=== PATIENT | female | born 1985 | race Caucasian/White ===

== ENCOUNTER 2018-12-23 02:22 | Outpatient (CLI) | payer MEDICAID, SELFPAY ==
--- NOTE | 2018-12-23 08:23 | DI.RAD_ITS ---
SYMPTOM/DIAGNOSIS: ACUTE ON CHRONIC PAIN, WORSE ON RT, SACROILIAC PAIN, SACROCOCCYGEAL DISORDER, M53.3, LOW BACK PAIN SACROILIAC JOINTS: The sacroiliac joints have a normal appearance. There is no abnormal sclerosis or bony erosions or abnormal widening. The pubic symphysis and hip joints are normal in appearance. The L 4-5 and L 5-S 1 discs are well maintained in height. No spondylolysis or spondylolisthesis is seen. IMPRESSION: Normal SI joints.
== END 2018-12-23 02:42 ==
PROVIDERS: PCP Family Medicine; Visit Provider Family Medicine
DX: M53.3 Sacrococcygeal disorders, not elsewhere classified (principal); M54.5 Low back pain; G89.29 Other chronic pain
CPT/HCPCS: 72202

== ENCOUNTER 2019-06-20 01:40 | Outpatient (CLI) | payer MEDICAID, SELFPAY ==
--- NOTE | 2019-06-20 11:02 | DI.MRI_ITS ---
EXAM: MR LUMBAR SPINE WO CLINICAL HISTORY: Sciatica > 3 months, no relief from PT M54.30. TECHNIQUE: Multiplanar multisequence MRI was performed. COMPARISON: XR sacroiliac joints from 12/23/2018 FINDINGS: There is high signal on T2 and STIR weighted images at the inferior endplate of L1 which also shows m ild compression. The mean intervertebral body show normal height and signal. The T10-11 levels unre markable. At T11, there is a small disc protrusion which effaces the anterior CSF space. There is n o neural foraminal narrowing. The T12-L1 disc has a normal appearance. At L1-2, there is mild loss of disc height and disc desiccation as well as slight disc bulging. There is no central canal steno sis or neural foraminal narrowing. The L2-3, L3-4, L4-5 and L5-S1 discs appear intact. There is no neural foraminal narrowing at any level. The conus medullaris appears normal. The aorta is normal i n diameter. IMPRESSION: 1. Mild compression fracture of the inferior endplate L-1. 2. Small disc protrusion at T 11-12
== END 2019-06-20 02:00 ==
PROVIDERS: PCP Family Medicine; Visit Provider Family Medicine
DX: M54.30 Sciatica, unspecified side (principal); M48.56XD Collapsed vertebra, not elsewhere classified, lumbar region, subsequent encounter for fracture with routine healing; M51.24 Other intervertebral disc displacement, thoracic region
CPT/HCPCS: 72148

== ENCOUNTER 2019-08-29 14:10 | Outpatient (CLI) | payer MEDICAID, SELFPAY ==
[2019-08-28 17:29] VITALS: BP 105/68; PULSE 64; RESP 16; TEMP 36.4; O2SAT 100
[2019-08-29] MEDS: Omnipaque 240 MG/ML 50 ML BTL IJ (15:05)
[2019-08-29] MEDS: methylPREDNISolone ACETATE 40 MG/ML VIAL IM (15:07)
[2019-08-29 15:08] VITALS: BP 128/63; PULSE 62; RESP 16; O2SAT 99
[2019-08-29] MEDS: Bupivacaine 0.5% Pres-Free 10 ML VIAL IJ (15:08)
--- NOTE | 2019-08-29 15:09 | DI.RAD_ITS ---
EXAM: XR PAIN CLINIC SACRIOILIAC 2V CLINICAL HISTORY: Dx: Sacroiliac Joint Dysfunction TECHNIQUE: C-arm fluoroscopy was utilized by Dr. Chadwick during SI joint injection. COMPARISON: No exams were available for comparison FINDINGS: Hard copy shows needle placement and injection in left SI joint. Fluoro time 19.2 seconds. IMPRESSION:
--- NOTE | 2019-08-29 15:09 | PDOC.PAIN_ITS ---
Pain Clinic Procedure Note Procedure Note Procedure Note: INTRA-ARTICULAR SI JOINT INJECTION YUNIEL CAMILO has been referred to the [facility] for intra- articular SI joint injection. Diagnosis: disorder of sacrum Patient was interviewed and the medical record reviewed. There were no medical, pharmacologic, radiographic or other structural contraindications to attempting fluoroscopically guided intra-articular SI joint injection. Risks and expected side effects as well as potential benefit of the procedure were reviewed and voiced concerns addressed. The printed consent form was signed and witnessed. Standard time-out procedure was performed. Patient was placed in the prone position on the fluoroscopy table and automated blood pressure cuff and pulse oximeter applied. The skin entry point for approaching left SI joints was identified under the most advantageous fluoroscopic view and marked. Following thorough Chlorhexadine preparation of the skin and draping and 1% lidocaine infiltration of the skin entry point and subcutaneous tissues, a 22 gauge 3.5'' spinal needle was placed under fluoroscopic guidance into left SI joints was identified under the most advantageous fluoroscopic view and marked. Intra-articular placement was confirmed by a clear arthrogram resulting from the injection of 0.25ml Omnipaque 240, 1.5ml 0.5% Bupivocaine, and 40mg Depomedrol (1cc) were injected intra- articularily with an initial reproduction of a significant component of the usual pain. Vital signs were stable throughout the procedure and were as recorded in the docflowsheet by the nursing staff. Follow up plans and appointments were discussed with the patient. Post procedure instruction was given as documented in nursing documentation and having met discharge criteria, and was discharged from the [facility]. COMMENTS: patient tolerated procedure well without issue. She reports similar symptoms involving the right sacroiliac joint mediated pain. Fernando Chadwikc MD Pain Management CC: Donte Barboza DO
== END 2019-08-29 14:30 ==
PROVIDERS: PCP Family Medicine; Visit Provider Internal Medicine
DX: M53.3 Sacrococcygeal disorders, not elsewhere classified (principal)
CPT/HCPCS: 27096; 72200; J1030; Q9967

== ENCOUNTER 2019-11-14 11:44 | Outpatient (CLI) | payer MEDICAID, SELFPAY ==
--- NOTE | 2019-11-14 06:00 | DI.RAD_ITS ---
EXAM: XR PAIN CLINIC SACRIOILIAC 2V CLINICAL HISTORY: Dx: Sacroiliac Joint Dysfunction TECHNIQUE: 2D and realtime digital imaging was performed. CONTRAST MATERIAL: Refer to procedure report. COMPARISON: No exams were available for comparison FINDINGS: Fluoroscopy was provided for Dr. Chadwick during the performance of a sacroiliac joint injection. Please refer to the procedure report for complete details. Fluoro time: 24.3 seconds IMPRESSION:
[2019-11-14 11:52] VITALS: BP 113/77; PULSE 95; RESP 20; TEMP 36.8; O2SAT 97
--- NOTE | 2019-11-14 12:09 | PDOC.PAIN_ITS ---
Pain Clinic Procedure Note Procedure Note Procedure Note: INTRA-ARTICULAR SI JOINT INJECTION YUNIEL CAMILO has been referred to the [facility] for intra- articular SI joint injection. pre-operative diagnosis: disorder of sacrum post-operative diagnosis: same as above Comment: patient received ~3 to 4 weeks of pain relief from prior left SI joint injection, it was able to bring baseline pain level down to 2 to 3 out of 10. Patient was interviewed and the medical record reviewed. There were no medical, pharmacologic, radiographic or other structural contraindications to attempting fluoroscopically guided intra-articular SI joint injection. Risks and expected side effects as well as potential benefit of the procedure were reviewed and voiced concerns addressed. The printed consent form was signed and witnessed. Standard time-out procedure was performed. Patient was placed in the prone position on the fluoroscopy table and automated blood pressure cuff and pulse oximeter applied. The skin entry point for approaching right SI joints was identified under the most advantageous fluoroscopic view and marked. Following thorough Chlorhexadine preparation of the skin and draping and 1% lidocaine infiltration of the skin entry point and subcutaneous tissues, a 3.5'' 22 gauge spinal needle was placed under fluoroscopic guidance into right SI joints was identified under the most advantageous fluoroscopic view and marked. Following thorough Chlorhexadine preparation of the skin and draping and 1% lidocaine infiltration of the skin entry point and subcutaneous tissues, a 22 gauge spinal needle was placed under fluoroscopic guidance into left SI joint. Intra-articular placement was confirmed by a clear arthrogram resulting from the injection of 0.25ml Omnipaque 240, 1ml 1% lidocaine, and 40mg Depomedrol were injected intra-articularily with an initial reproduction of a significant component of the usual pain. Vital signs were stable throughout the procedure and were as recorded in the docflowsheet by the nursing staff. If given, dosages of intravenous drugs for anxiolysis and analgesia were documented in MAR. Follow up plans and appointments were discussed with the patient. Post procedure instruction was given as documented in nursing documentation and having met discharge criteria, and was discharged from the [facility]. COMMENTS: Patient tolerated procedure well. I personally performed the entire procedure. Fernando Chadwick MD Pain Management CC: Donte Barboza DO
[2019-11-14 12:34] VITALS: BP 126/56; PULSE 81; RESP 13; O2SAT 99
[2019-11-14] MEDS: Omnipaque 240 MG/ML 50 ML BTL IJ (12:41)
[2019-11-14] MEDS: Lidocaine 1% Pres-Free 5 ML VIAL (12:42)
[2019-11-14] MEDS: methylPREDNISolone ACETATE 80 MG/ML VIAL IJ (12:42)
== END 2019-11-14 12:04 ==
PROVIDERS: PCP Family Medicine; Visit Provider Internal Medicine
DX: M53.3 Sacrococcygeal disorders, not elsewhere classified (principal)
CPT/HCPCS: 27096; 72200; J1040; Q9967

== ENCOUNTER 2020-03-05 10:28 | Outpatient (CLI) | payer MEDICAID, SELFPAY ==
[2020-03-05 10:38] VITALS: BP 111/73; PULSE 66; RESP 16; TEMP 36.9; O2SAT 99
--- NOTE | 2020-03-05 10:42 | PDOC.PAIN_ITS ---
Pain Clinic Procedure Note Procedure Note Procedure Note: INTRA-ARTICULAR SI JOINT INJECTION YUNIEL CAMILO has been referred to the [facility] for intra- articular SI joint injection. Pre-operative diagnosis: disorder of sacrum Post-operative diagnosis: same as above COMMENTS: She reported a 75% pain reduction lasting for 3 weeks following left SIJ injection on 08/29/[address] Chadwick. She then returned C/O of bilateral pain and had bilateral SIJ injections on 11/14/[address] Chadwick, which she reports 70% relief from lasting for 1.5 months. She is here for a third SI joint injection. Patient was interviewed and the medical record reviewed. There were no medical, pharmacologic, radiographic or other structural contraindications to attempting fluoroscopically guided intra-articular SI joint injection. Risks and expected side effects as well as potential benefit of the procedure were reviewed and voiced concerns addressed. The printed consent form was signed and witnessed. Standard time-out procedure was performed. Patient was placed in the prone position on the fluoroscopy table and automated blood pressure cuff and pulse oximeter applied. The skin entry point for approaching bilateral SI joints was identified under the most advantageous fluoroscopic view and marked. Following thorough Chlorhexadine preparation of the skin and draping and 1% lidocaine infiltration of the skin entry point and subcutaneous tissues, a 22 gauge spinal needle was placed under fluoroscopic guidance into bilateral SI joints was identified under the most advantageous fluoroscopic view and marked. Following thorough Chlorhexadine preparation of the skin and draping and 1% lidocaine infiltration of the skin entry point and subcutaneous tissues, a 22 gauge spinal needle was placed under fluoroscopic guidance into bilateral SI joint. Intra-articular placement was confirmed by a clear arthrogram resulting from the injection of 0.25ml Omnipaque 240, 1ml 1% lidocaine, and 40mg Depomedrol were injected intra-articularily with an initial reproduction of a significant component of the usual pain. Vital signs were stable throughout the procedure and were as recorded in the docflowsheet by the nursing staff. Follow up plans and appointments were discussed with the patient. Post procedure instruction was given as documented in nursing documentation and having met discharge criteria, and was discharged from the [facility]. COMMENTS: patient tolerated procedure well. I personally performed the entire procedure. Fernando Chadwick MD Pain Management CC: Donte Barboza DO
[2020-03-05] MEDS: methylPREDNISolone ACETATE 80 MG/ML VIAL IJ (11:12)
[2020-03-05] MEDS: Omnipaque 240 MG/ML 50 ML BTL IJ (11:12)
[2020-03-05 11:15] VITALS: BP 120/77; PULSE 71; RESP 17; O2SAT 95
--- NOTE | 2020-03-05 11:21 | DI.RAD_ITS ---
EXAM: XR PAIN CLINIC SACRIOILIAC 2V CLINICAL HISTORY: Dx:Sacroiliac Joint Dysfunction. TECHNIQUE: Fluoroscopy was provided for the referring physician for guidance with performing injecti on procedure. COMPARISON: No exams were available for comparison FINDINGS: Please see procedure note for details. Fluoro Time: 15.8 sec RADIATION DOSE DELIVERED:
== END 2020-03-05 10:48 ==
PROVIDERS: PCP Family Medicine; Visit Provider Internal Medicine
DX: M53.3 Sacrococcygeal disorders, not elsewhere classified (principal)
CPT/HCPCS: 27096; 72200; J1040; Q9967

== ENCOUNTER 2020-03-26 10:31 | Emergency (ER) | payer MEDICAID, SELFPAY ==
[2020-03-26] VITALS (46 sets, daily range): BP systolic 87–148; BP diastolic 42–108; PULSE 49–74; RESP 5–27; TEMP 36.8; O2SAT 96–100
--- NOTE | 2020-03-26 10:30 | RT.EKG_ITS ---
APPROVED REPORT Exam: Resting ECG Patient Location: E HR:70 bpm ECG Measurements Heart Rate 70 AXIS SD 136 P 30 QRSd 91 QRS 33 QT 448 T -14 QTc 484 <Conclusion> Sinus rhythm...normal P axis, V-rate 60- 99 Abnrm R prog, consider ASMI or lead placement...Q >30mS, diminished R, V1-V2 Nonspecific T abnormalities, inferior leads...T <-0.10mV, II III aVF
--- NOTE | 2020-03-26 11:30 | RT.EKG_ITS ---
APPROVED REPORT Exam: Resting ECG Patient Location: E HR:59 bpm ECG Measurements Heart Rate 59 AXIS MT 143 P 47 QRSd 92 QRS 33 QT 432 T 27 QTc 429 <Conclusion> Sinus bradycardia...rate< 60 Abnrm R prog, consider ASMI or lead placement...Q >30mS, diminished R, V1-V2
[2020-03-26] MEDS: Aspirin 81 MG CHEW 243 MG CH (12:15)
[2020-03-26 12:44] LABS: ALT 24 U/L (14-59); AST 19 U/L (15-37); Albumin 4.1 g/dL (3.4-5.0); Alkaline Phosphatase 72 U/L (46-116); Anion Gap 10.5 mmol/L (3-11); BUN 10 mg/dL (7-18); Bilirubin, Total 0.4 mg/dL (0.2-1.0); CO2 25.5 mmol/L (21.0-32.0); CREATININE 0.82 mg/dL (0.55-1.02); Calcium 9.2 mg/dL (8.5-10.1); Chloride 103 mmol/L (98-107); Glucose 89 mg/dL (74-106); Sodium 139 mmol/L (136-145)
[2020-03-26 12:46] LABS: Troponin I < 0.05 ng/mL (<0.06)
--- NOTE | 2020-03-26 13:03 | W.ED.GENAD ---
Discharge Plan Disposition Patient Disposition: HOME Condition: Stable Discharge Details Chief Complaint: Chest/Rib Clinical Impression: Back pain, Chest pressure Primary Care Provider: Donte Barboza ED Provider: Jorge Luis Davis Home Meds and New Rx's Prescriptions: Continued methocarbamol 500 mg tablet 500 mg PO HS PRN (Reason: back spasms) Qty: 60 RF: 0 buprenorphine-naloxone [Suboxone] 2-0.5 mg film 1 film SL BID MDD 4 mg Qty: 28 RF: 5 Children's Chewable Complete 1 EACH tablet,chewable 1 ea PO DAILY RF: 0 acetaminophen [Tylenol] 325 MG tablet 650 mg PO Q4H PRN PRNRF: 0 ibuprofen 600 MG tablet 600 mg PO Q6H PRN PRNRF: 0 Discharge Instructions Instructions: Chest Pain (ED), Back Pain (ED) Additional Instructions: Work-up in the ER including a repeat 3-hour troponin and EKG are unremarkable for obvious emergent process. I do recommend that you watch for new or worsening symptoms and return to the ER for any concerns. I would like you to reach out to your primary care provider tomorrow for prompt outpatient reevaluation, if symptoms persist outpatient work-up may be required. In the meantime you can take nulj-zyl-nowxvba medication such as Prilosec to see if this does help with your symptoms. Medical Decision Making 34-year-old female with no significant cardiac history, is a current smoker, presents for bleeding pain that began in her thoracic mid back, radiated to both shoulders, had a epigastric pressure this did radiate up into her throat. Denies any chest pain. She reports a similar episode roughly 2 weeks ago, but the time she came to the ER she was completely asymptomatic. Low suspicion for ACS. Given the PERC criteria, will not obtain d-dimer. Very well could be musculoskeletal in nature. Could be cholecystitis, esophagitis, peptic ulcer, GERD, etc. She did take a single baby aspirin when the pain started. I will give her 3 more baby aspirin and she is agreeable to obtaining a 3-hour cardiac rule out here in the ER. There is no reproducible discomfort in her abdomen or back during my evaluation. Upon reevaluation patient remains asymptomatic. Initial labs reveal a white count of 6.96 hemoglobin 13.9 hematocrit 42.9 platelet count 248. Chemistries are unremarkable. Creatinine of 0.82 with estimated GFR greater than 60. Initial troponin less than 0.05. Urinalysis unremarkable. Chest x-ray negative Patient agreeable to await repeat troponin and EKG in 3 hours. Upon reevaluation she remains asymptomatic. Repeat EKG reviewed and interpreted with Dr. Cortés, please see her official read. Obtained at 1519. Sinus bradycardia with ventricular to 53. No STEMI. No dynamic changes when compared to initial EKG. Repeat EKG remains less than 0.05. Discussed benign work-up with patient. She is relieved and remains asymptomatic. Has no additional questions or concerns at this time. She was encouraged to watch for new or worsening symptoms and return to the ER otherwise reach out to her primary care provider for outpatient reevaluation. Given her history of GERD, the way her symptoms are described as a pressure in her epigastric region that did go up to her throat, I do question if there may be a GI component behind this. Medical Records Medical records reviewed: Yes I reviewed the patient's medical records. Imaging Data Radiologic Study: Attestation: I personally reviewed and interpreted this imaging study as follows: Imaging: X-Ray My impression: Chest x-ray negative Lab Data Lab results reviewed: Yes I reviewed the patient's lab results. Lab results narrative: Laboratory Tests Range/Units 03/26/20 03/26/20 03/26/20 12:15 12:15 13:05 WBC (4.4-10.8) 10^3/uL 6.96 RBC (3.93-5.22) 10^6/uL 4.65 Hgb (11.2-15.7) g/dL 13.9 Hct (36.0-46.0) % 42.9 MCV (80-95) fL 92.3 MCH (27.0-33.0) pg 29.9 MCHC (32.0-36.0) % 32.4 RDW (11.7-14.6) % 13.0 Plt Count (130-400) 10^3/uL 248 MPV (8.0-11.0) fL 10.4 Immature Gran % 0.1 Neutrophils % 60.8 Lymphocytes % 30.0 Monocytes % 5.5 Eosinophils % 2.6 Basophils % 1.0 Absolute Neutrophils (1.2-6.7) 10^3/uL 4.23 Absolute Lymphocytes (1.2-3.4) 10^3/uL 2.09 Absolute Monocytes (0.1-0.8) 10^3/uL 0.38 Absolute Eosinophils (0.0-0.7) 10^3/uL 0.18 Absolute Basophils (0.0-0.2) 10^3/uL 0.07 Sodium (136-145) mmol/L 139 Potassium (3.5-5.1) mmol/L 4.0 Chloride (98-107) mmol/L 103 Carbon Dioxide (21.0-32.0) mmol/L 25.5 Anion Gap (3-11) mmol/L 10.5 BUN (7-18) mg/dL 10 Creatinine (0.55-1.02) mg/dL 0.82 Estimated GFR/1.73 m2 (mL/min/1.73m2) >= 60.00 Glucose (74-106) mg/dL 89 Calcium (8.5-10.1) mg/dL 9.2 Magnesium (1.8-2.4) mg/dL 2.0 Total Bilirubin (0.2-1.0) mg/dL 0.4 AST (15-37) U/L 19 ALT (14-59) U/L 24 Alkaline Phosphatase (46-116) U/L 72 Troponin I (<0.06) ng/mL < 0.05 Total Protein (6.4-8.2) g/dL 8.0 Albumin (3.4-5.0) g/dL 4.1 Urine Color (Yellow) Yellow Urine Clarity (Clear) Clear Urine pH (5-8) 7.5 Ur Specific [place] (1.005-1.025) 1.020 Urine Protein (Negative) mg/dL Negative Urine Ketones (Negative) mg/dL Negative Urine Blood (Negative) Negative Urine Nitrite (Negative) Negative Urine Bilirubin (Negative) Negative Urine Urobilinogen (Up TO 0.2) EU/dL 0.2 Ur Leukocyte Esterase (Negative) Negative Urine Glucose (Negative) mg/dL Negative ECG Data Attestation: I personally reviewed and interpreted this ECG (s) as follows: Interpretation: EKG reviewed and interpreted with Dr. Cortés. Sinus bradycardia, rate of 59. No STEMI. Please see Dr. Cortés's official interpretation HPI General Mode of arrival: ambulatory. Date/Time Provider Initiated Documentation: 03/26/20 10:52. Limitations to Documentation: no limitations. Information obtained by: patient. HPI Narrative: This is a 34-year-old female with history of anxiety, chronic low back pain with sciatica, GERD, migraines, opiate dependency, clean for over 6 years, now on Suboxone, PCOS, current smoker, presenting for evaluation of midthoracic back pain that began around 10-1030 this morning while driving her vehicle. The pain was sudden and sharp radiating to both shoulders. She also felt a pressure that went from her epigastric region up into her throat but did not have a foul or sour taste. The pain resolved completely by the time she came to the ER. She reports a similar episode roughly 2 weeks ago however never sought medical attention at that time. She denies recent illness or travel. Denies headache, chest pain, shortness of breath, cough, abdominal pain, nausea, vomiting, numbness, tingling, weakness, change in bowel or bladder habit. Denies any early cardiac disease in her family. Related Data Home Medications Medication Instructions Recorded Confirmed Children's Chewable Complete 1 ea PO DAILY tab.chew 01/26/17 03/05/20 acetaminophen [Tylenol] 650 mg PO Q4H PRN PRN tab 08/24/17 03/05/20 ibuprofen 600 mg PO Q6H PRN PRN tab 08/24/17 03/05/20 methocarbamol 500 mg tablet 500 mg PO HS PRN #60 tab 09/27/18 03/05/20 buprenorphine 2 mg-naloxone 0.5 mg 1 film SL BID #28 each MDD 4 mg 02/13/20 03/05/20 sublingual film Previous Rx's Medication Instructions Recorded acetaminophen [Tylenol] 650 mg PO Q4H PRN PRN tab 08/24/17 ibuprofen 600 mg PO Q6H PRN PRN tab 08/24/17 methocarbamol 500 mg tablet 500 mg PO HS PRN #60 tab 09/27/18 buprenorphine 2 mg-naloxone 0.5 mg 1 film SL BID #28 each MDD 4 mg 02/13/20 sublingual film Allergies Allergy/AdvReac Type Severity Reaction Status Date / Time codeine Allergy Severe Anaphylaxsi Verified 03/26/20 10:47 s Penicillins Allergy Severe Anaphylaxsi Verified 03/26/20 10:47 s General Stated Complaint: Chest/Rib DMITRY: 2 Review of Systems Constitutional Constitutional: Denies fatigue and Denies fever(s) Eyes Eyes: Denies change in vision ENT Ears, Nose, Mouth, and Throat: Denies dizziness, Denies neck pain and Denies sore throat Cardiovascular Cardiovascular: Denies chest pain and Denies dyspnea Respiratory Respiratory: Denies dyspnea Gastrointestinal Gastrointestinal: Denies abdominal pain, Denies nausea and Denies vomiting Musculoskeletal Musculoskeletal: Reports back pain, Denies neck pain, Denies numbness and Denies tingling Integumentary/Breasts Skin/Breast: Denies rash Neurologic Neurologic: Denies dizziness, Denies numbness and Denies tingling Endocrine Endocrine: Denies fatigue [facility] Medical History Adjustment disorder with anxiety (Resolved 05/25/16) Atypical squamous cells of undetermined significance with positive high risk human papillomavirus (Inactive 11/12/05) Chronic bilateral low back pain with sciatica Encounter for supervision of low-risk first in third trimester (Resolved 06/30/17) Encounter for supervision of normal first in second trimester (Resolved 04/13/17) Gastroesophageal reflux disease (Inactive 01/04/15) 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 Polycystic ovarian syndrome (Chronic) US 03/30/2016 neg.; Metformin rx Sciatica (Acute) Scoliosis Supervision of normal first in first trimester (Resolved 02/09/17) Tobacco abuse (Chronic 01/04/15) 1 PPD dec to 0.5 PPD Toothache (Inactive 06/24/15) Family History Father Diabetes Brother Personal history of malignant neoplasm T cell leukemia in remission since 2004 Mother No problems noted. Grandfather , Colon CA at age 68. No problems noted. Grandmother Essential hypertension Social History Smoking/Tobacco Use Status: Current every day Alcohol Intake: never Drug use: Occasionally Substance use type: marijuana Details: Also is on Suboxone.. PT states on 03/26/2020 she has not used IV drugs in over 10 years Household members: significant other and children Housing: house Number of Children: 1 Do you feel safe at home: Yes Do you feel safe in your relationship?: Yes Exam Const General: cooperative, healthy appearing, comfortable and no acute distress Orientation: alert, awake and oriented x3 HENMT Head: normal to inspection, normocephalic and atraumatic Face and sinus: normal facial exam Mouth: moist mucous membranes Throat: posterior oropharynx normal Eyes Conjunctivae: conjunctivae normal Sclera: sclerae normal Neck Neck: normal visual inspection, full ROM, no meningeal signs, trachea midline, supple and nontender Chest Chest: normal inspection of the chest and normal palpation of entire chest wall Resp Effort & Inspection: normal respiratory effort and able to speak in complete sentences Auscultation: clear to auscultation bilaterally Cardio Rate: regular rate Rhythm: regular rhythm GI Palpation: soft and nontender Back/Spine/Pelvis Back: no CVA tenderness and No back tenderness Skin General skin exam: no rashes or lesions noted Neuro General: patient alert, patient awake, patient oriented x3, moves all extremities and no focal motor deficits Cranial Nerves: CN's II-XI intact bilaterally Cognition: normal cognition Speech: speech normal Gait: normal gait Motor: muscle tone normal throughout Sensory Exam: no sensory deficits noted Extrem General: normal to inspection, full ROM, capillary refill normal, no pedal edema and no calf tenderness Psych Appearance: grossly normal Mental Status: mental status grossly normal Course Vital Signs Vital signs: Vital Signs Temperature 36.8 C 03/26/20 10:44 Pulse 74 03/26/20 10:44 Respiratory Rate 18 03/26/20 10:44 Blood Pressure 148/96 H 03/26/20 10:44 Pulse Oximetry 98 03/26/20 10:44 Temperature 36.8 C 03/26/20 10:44 Temperature Source Skin 07/28/20 10:44 Pulse 55 L 03/26/20 11:01 Pulse 58 L 03/26/20 11:01 Respiratory Rate 20 03/26/20 11:01 Respiratory Effort 03/26/20 11:09 Respiratory Depth Normal 03/26/20 10:57 Blood Pressure 111/62 03/26/20 11:01 Blood Pressure Mean 75 03/26/20 11:01 Blood Pressure Position Supine 03/26/20 10:44 Pulse Oximetry 98 03/26/20 10:44 Oxygen Delivery Method Room Air 03/26/20 10:44 Oxygen Flow Rate 0 03/26/20 10:44 Pain Level 2 03/26/20 10:44 Lab/Test Results Lab/Test Results: Laboratory Tests Range/Units 03/26/20 12:15 Sodium (136-145) mmol/L 139 Potassium (3.5-5.1) mmol/L 4.0 Chloride (98-107) mmol/L 103 Carbon Dioxide (21.0-32.0) mmol/L 25.5 Anion Gap (3-11) mmol/L 10.5 BUN (7-18) mg/dL 10 Creatinine (0.55-1.02) mg/dL 0.82 Estimated GFR/1.73 m2 (mL/min/1.73m2) >= 60.00 Glucose (74-106) mg/dL 89 Calcium (8.5-10.1) mg/dL 9.2 Magnesium (1.8-2.4) mg/dL 2.0 Total Bilirubin (0.2-1.0) mg/dL 0.4 AST (15-37) U/L 19 ALT (14-59) U/L 24 Alkaline Phosphatase (46-116) U/L 72 Troponin I (<0.06) ng/mL < 0.05 Total Protein (6.4-8.2) g/dL 8.0 Albumin (3.4-5.0) g/dL 4.1
[2020-03-26 13:11] LABS: Bilirubin Negative (Negative); Blood Negative (Negative); Clarity Clear (Clear); Glucose Negative (Negative); Ketones Negative (Negative); Leukocyte Esterase Negative (Negative); Nitrite Negative (Negative); Urobilinogen 0.2 EU/dL (Up TO 0.2); pH 7.5 (5-8)
--- NOTE | 2020-03-26 13:26 | DI.RAD_ITS ---
EXAM: XR CHEST 2V PA LATERAL CLINICAL HISTORY: pain TECHNIQUE: 2D digital imaging was performed. COMPARISON: No exams were available for comparison FINDINGS: MEDIASTINUM: Normal. HEART: Normal. PULMONARY VASCULATURE: Normal. LUNGS: Clear. PLEURAL SPACE: No pleural effusion or pneumothorax. BONE:Normal. OTHER FINDINGS:Normal. IMPRESSION: No acute pulmonary findings. DATA REPOSITORY: RADIATION DOSE DELIVERED:
[2020-03-26 14:57] LABS: Abs Immature Grans 0.01 10^3/uL (0.0-0.06); Absolute Basophil Count 0.07 10^3/uL (0.0-0.2); Absolute Eosinophil Count 0.18 10^3/uL (0.0-0.7); Absolute Lymphocyte Count 2.09 10^3/uL (1.2-3.4); Absolute Monocyte Count 0.38 10^3/uL (0.1-0.8); Absolute Neutrophil Count 4.23 10^3/uL (1.2-6.7); Eosinophils % 2.6; HCT 42.9 % (36.0-46.0); HGB 13.9 g/dL (11.2-15.7); Immature Grans % 0.1; MCH 29.9 pg (27.0-33.0); MCHC 32.4 % (32.0-36.0); MCV 92.3 fL (80-95); MPV 10.4 fL (8.0-11.0); Monocytes % 5.5; Neutrophils % 60.8; Platelet Count 248 10^3/uL (130-400); RBC 4.65 10^6/uL (3.93-5.22); RDW-SD 43.8 fL; WBC 6.96 10^3/uL (4.4-10.8)
--- NOTE | 2020-03-26 15:00 | RT.EKG_ITS ---
APPROVED REPORT Exam: Resting ECG Patient Location: E HR:53 bpm ECG Measurements Heart Rate 53 AXIS OH 160 P 47 QRSd 89 QRS 41 QT 437 T 30 QTc 411 <Conclusion> Sinus bradycardia...rate< 60 Abnrm R prog, consider ASMI or lead placement...Q >30mS, diminished R, V1-V2
[2020-03-26 15:47] LABS: Troponin I < 0.05 ng/mL (<0.06)
== END 2020-03-26 16:33 | disposition home or self-care (01) ==
PROVIDERS: Emergency Provider Physician Assistant; PCP Family Medicine
DX: R07.89 Other chest pain (principal); M54.6 Pain in thoracic spine; F17.200 Nicotine dependence, unspecified, uncomplicated
CPT/HCPCS: 36415; 80053; 81025; 93005; 99285; 71046; 81003; 83735; 84484; 85025; 93010; 99284

== ENCOUNTER 2020-04-05 02:53 | Outpatient (CLI) | payer MEDICAID, SELFPAY | END 2020-04-05 03:13 | PROVIDERS: PCP Family Medicine; Visit Provider Family Medicine | DX: R53.83 Other fatigue (principal) | CPT/HCPCS: 36415; 84443 ==

== ENCOUNTER 2020-04-23 18:09 | Emergency (ER) | payer MEDICAID, SELFPAY ==
[2020-04-23 18:13] VITALS: BP 112/54; PULSE 90; RESP 14; TEMP 37.1; O2SAT 100
--- NOTE | 2020-04-23 18:15 | DI.RAD_ITS ---
EXAM: XR ANKLE LT COMPLETE CLINICAL HISTORY: pain after 'twisting' TECHNIQUE: COMPARISON: No exams were available for comparison FINDINGS: Three views were obtained. There is osteophyte at the Achilles attachment on the calcaneus. The ank le mortise is well maintained. No fracture is seen. Mild soft tissue swelling of the ankle. IMPRESSION: RADIATION DOSE DELIVERED: Total DLP
--- NOTE | 2020-04-23 18:23 | W.ED.GENAD ---
Discharge Plan Disposition Patient Disposition: HOME Condition: Stable Discharge Details Chief Complaint: Orthopedic Clinical Impression: Left ankle sprain Primary Care Provider: Donte Barboza ED Provider: Giancarlo Corrales Home Meds and New Rx's Prescriptions: Continued methocarbamol 500 mg tablet 500 mg PO HS PRN (Reason: back spasms) Qty: 60 RF: 0 buprenorphine-naloxone [Suboxone] 2-0.5 mg film 1 film SL BID MDD 4 mg Qty: 28 RF: 5 acetaminophen [Tylenol] 325 MG tablet 650 mg PO Q4H PRN PRNRF: 0 ibuprofen 600 MG tablet 600 mg PO Q6H PRN PRNRF: 0 Discharge Instructions Instructions: Ankle Sprain (ED) Additional Instructions: Apply ice, elevate the leg above the level of the heart to reduce pain and swelling. Use ankle stabilizer and crutches as needed approximately 3 to 7 days time. Continue your ibuprofen, Suboxone and also may use Tylenol if needed for pain. Medical Decision Making 34-year-old female stepped into a hole in the ground while carrying her son and twisted her left ankle. She was not injured in any other way. She is had left lateral malleoli are swelling and discomfort since the time of the accident. She is referred for x-ray which does not reveal underlying bony injury. Consistent with a lateral ankle sprain. Will place in a lace up ankle brace and crutches to be used as needed. She understands home management. HPI General Mode of arrival: ambulatory. Date/Time Provider Initiated Documentation: 04/23/20 18:10. Limitations to Documentation: no limitations. Information obtained by: patient. History of Present Illness 34 year old F presents to the emergency department with the chief complaint of Left ankle lateral pain after twisting, described as moderate, Quality is described as dull, and is localized to the left and lower extremity. Patient reports no radiation. Patient started experiencing this minute(s) and it has been constant. Rest improves symptom(s), Movement worsens symptoms . Patient notes no other symptoms.; denies syncope and weakness. Patient did receive the following treatments prior to arrival, none Related Data Home Medications Medication Instructions Recorded Confirmed acetaminophen [Tylenol] 650 mg PO Q4H PRN PRN tab 08/24/17 04/02/20 ibuprofen 600 mg PO Q6H PRN PRN tab 08/24/17 04/02/20 methocarbamol 500 mg tablet 500 mg PO HS PRN #60 tab 09/27/18 04/02/20 buprenorphine 2 mg-naloxone 0.5 mg 1 film SL BID #28 each MDD 4 mg 02/13/20 04/02/20 sublingual film Previous Rx's Medication Instructions Recorded acetaminophen [Tylenol] 650 mg PO Q4H PRN PRN tab 08/24/17 ibuprofen 600 mg PO Q6H PRN PRN tab 08/24/17 methocarbamol 500 mg tablet 500 mg PO HS PRN #60 tab 09/27/18 buprenorphine 2 mg-naloxone 0.5 mg 1 film SL BID #28 each MDD 4 mg 02/13/20 sublingual film Allergies Allergy/AdvReac Type Severity Reaction Status Date / Time codeine Allergy Severe Anaphylaxsi Verified 04/23/20 18:16 s Penicillins Allergy Severe Anaphylaxsi Verified 04/23/20 18:16 s General Stated Complaint: Orthopedic DMITRY: 3 Review of Systems Narrative: 4 systems reviewed and otherwise negative [facility] Medical History Adjustment disorder with anxiety (Resolved 05/25/16) Atypical squamous cells of undetermined significance with positive high risk human papillomavirus (Inactive 11/12/05) Chronic bilateral low back pain with sciatica Encounter for supervision of low-risk first in third trimester (Resolved 06/30/17) Encounter for supervision of normal first in second trimester (Resolved 04/13/17) Gastroesophageal reflux disease (Inactive 01/04/15) 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 Polycystic ovarian syndrome (Chronic) US 03/30/2016 neg.; Metformin rx Sciatica (Acute) Scoliosis Supervision of normal first in first trimester (Resolved 02/09/17) Tobacco abuse (Chronic 01/04/15) 1 PPD dec to 0.5 PPD Toothache (Inactive 06/24/15) Family History Father Diabetes Brother Personal history of malignant neoplasm T cell leukemia in remission since 2004 Mother No problems noted. Grandfather , Colon CA at age 68. No problems noted. Grandmother Essential hypertension Social History Smoking/Tobacco Use Status: Current every day Alcohol Intake: never Drug use: Occasionally Substance use type: marijuana Details: Also is on Suboxone.. PT states on 03/26/2020 she has not used IV drugs in over 10 years Household members: significant other and children Housing: house Number of Children: 1 Do you feel safe at home: Yes Do you feel safe in your relationship?: Yes Exam Narrative Exam Narrative: GEN: awake, alert, oriented 3. Pleasant, well groomed, interactive. HEAD: Normocephalic, atraumatic EYES: PERRL, EOMI CHEST/RESP: Nontender EXT: Left lateral malleolus swelling and tenderness to palpation. No medial discomfort. No abnormality of the knee. Right lower extremity unremarkable. Neuro: Grossly normal neurologic exam, conversant, interactive. Psych: Speech fluent, thoughts congruent, affect normal Course Vital Signs Vital signs: Vital Signs Temperature 37.1 C 04/23/20 18:13 Pulse 90 04/23/20 18:13 Respiratory Rate 14 04/23/20 18:13 Blood Pressure 112/54 L 04/23/20 18:13 Pulse Oximetry 100 04/23/20 18:13 Temperature 37.1 C 04/23/20 18:13 Temperature Source Skin 04/23/20 18:13 Pulse 90 04/23/20 18:13 Respiratory Rate 14 04/23/20 18:13 Respiratory Effort Non-Labored 04/23/20 18:16 Blood Pressure 112/54 L 04/23/20 18:13 Blood Pressure Position Supine 04/23/20 18:13 Pulse Oximetry 100 04/23/20 18:13 Oxygen Delivery Method Room Air 04/23/20 18:13 Oxygen Flow Rate 0 04/23/20 18:13 Pain Level 6 04/23/20 18:13
--- NOTE | 2020-04-23 18:34 | DI.VRAD_ITS ---
PROCEDURE INFORMATION: Exam: XR Left Ankle Exam date and time: 04/23/2020 18:25 Age: 34 years old Clinical indication: Pain; Left; Patient HX: Twisted ankle TECHNIQUE: Imaging protocol: XR Left ankle. Views: 3 or more views. COMPARISON: No relevant prior studies available. FINDINGS: Bones/joints: Posterior calcaneal spur. No acute fracture or subluxation. Soft tissues: Swelling about the ankle appears more pronounced laterally. IMPRESSION: No acute bony pathology. Dictated and Authenticated by: Kenia Barba MD. Ordering:YULIET Mondragon MD
== END 2020-04-23 18:51 | disposition home or self-care (01) ==
PROVIDERS: Emergency Provider Emergency Medicine; PCP Family Medicine
DX: S93.492A Sprain of other ligament of left ankle, initial encounter (principal); X50.9XXA Other and unspecified overexertion or strenuous movements or postures, initial encounter
CPT/HCPCS: 29515; 99283; 73610; 99282; E0114; L1902

== ENCOUNTER 2020-06-25 08:48 | Outpatient (CLI) | payer MEDICAID, SELFPAY ==
[2020-06-29 13:17] LABS: COVID-19 RT-PCR Result Negative
== END 2020-06-25 09:08 ==
PROVIDERS: PCP Family Medicine; Visit Provider Family Medicine
DX: J32.9 Chronic sinusitis, unspecified (principal)
CPT/HCPCS: U0003

== ENCOUNTER 2020-09-10 09:53 | Outpatient (CLI) | payer MEDICAID, SELFPAY ==
--- NOTE | 2020-09-10 06:00 | DI.RAD_ITS ---
EXAM: XR PAIN CLINIC SACRIOILIAC 2V CLINICAL HISTORY: DX: Sacroilliac Joint Dysfunction. TECHNIQUE: Fluoroscopy was provided for the referring physician for guidance with performing injecti on procedure. COMPARISON: No exams were available for comparison FINDINGS: Please see procedure note for details. Fluoro time: 36.7 sec, 11.17 mGy RADIATION DOSE DELIVERED:
[2020-09-10 10:01] VITALS: BP 98/62; PULSE 71; RESP 18; TEMP 36.7; O2SAT 98
[2020-09-10 10:30] VITALS: BP 139/92; PULSE 78; RESP 14; O2SAT 98
[2020-09-10] MEDS: Omnipaque 240 MG/ML 50 ML BTL IJ (10:35)
[2020-09-10] MEDS: methylPREDNISolone ACETATE 80 MG/ML VIAL IJ (10:36)
[2020-09-10] MEDS: Lidocaine 1% Pres-Free 5 ML VIAL IJ (10:36)
--- NOTE | 2020-09-10 10:39 | PDOC.PAIN_ITS ---
Pain Clinic Procedure Note Procedure Note Procedure Note: Date of procedure: September 10, 2020 INTRA-ARTICULAR BILATERAL SI JOINT INJECTION YUNIEL CAMILO has been referred to the [facility] for intra- articular SI joint injection. COMMENTS: She has had this procedure in the past. She was last seen in our clinic on 07/18/20 and last had this procedure on 08/29/19 Patient was interviewed and the medical record reviewed. There were no medical, pharmacologic, radiographic or other structural contraindications to attempting fluoroscopically guided intra-articular SI joint injection. Risks and expected side effects as well as potential benefit of the procedure were reviewed and voiced concerns addressed. The printed consent form was signed and witnessed. Standard time-out procedure was performed. Patient was placed in the prone position on the fluoroscopy table and automated blood pressure cuff and pulse oximeter applied. The skin entry point for approaching bilateral SI joints was identified under the most advantageous fluoroscopic view and marked. Following thorough Chlorhexadine preparation of the skin and draping and 1% lidocaine infiltration of the skin entry point and subcutaneous tissues, a 22 gauge spinal needle was placed under fluoroscopic guidance into bilateral SI joints was identified under the most advantageous fluoroscopic view and marked. Intra-articular placement was confirmed by a clear arthrogram resulting from the injection of 0.5ml Omnipaque 240, 1ml 1% lidocaine, and 40mg Depomedrol were injected intra-articularily into each joint with an initial reproduction of a significant component of the usual pain. Vital signs were stable throughout the procedure and were as recorded in the docflowsheet by the nursing staff. If given, dosages of intravenous drugs for an xiolysis and analgesia were documented in MAR. Follow up plans and appointments were discussed with the patient. Post procedure instruction was given as documented in nursing documentation and having met discharge criteria, and was discharged from the [facility]. COMMENTS: This procedure can be completed up to 3 times per 12 months. Curt Nuñez DO, MPH Pain Management CC: Donte Barboza DO
== END 2020-09-10 10:13 ==
PROVIDERS: PCP Family Medicine; Visit Provider Preventive Medicine Occupational Medicine
DX: M53.3 Sacrococcygeal disorders, not elsewhere classified (principal)
CPT/HCPCS: 27096; 72200; J1040; Q9967

== ENCOUNTER 2020-10-25 11:55 | Outpatient (REF) | payer MEDICAID, SELFPAY ==
--- NOTE | 2020-10-25 11:00 | PAPFT_PTH ---
PATIENT: Mariya Navas LOC: [facility] U#:[id number] AGE/SX: 35/F ROOM: RE10/25/[address]: CHERELLE Whitehead : 1985 BED: DIS: 10/25/2020 SPEC #: [id number] RECD: 10/25/20 13:11 STATUS: JANNETJoe REUzair #: [id number] JAH: 10/25/20 11:[address]: Marie Yo DEPT: [facility] Cytology RECD BY: Trixie Patrick ENTERED: 10/25/20 13:11 SP TYPE: PAPFT OTHR DR: Donte Barboza DO Tissues: 1 - CX/ENDOCX FOR PAP SMEARS Procedures: PAP THIN PREP/UVM Screening HPV DNA PROBE Comments: [id number]
== END 2020-10-25 11:56 | disposition home or self-care (01) ==
LOC: LBN 11:55
PROVIDERS: PCP Family Medicine; Visit Provider Nurse Practitioner Family
DX: Z12.4 Encounter for screening for malignant neoplasm of cervix (principal); Z11.51 Encounter for screening for human papillomavirus (HPV)
CPT/HCPCS: 88142; 87624

== ENCOUNTER 2021-01-02 08:53 | Outpatient (CLI) | payer MEDICAID, SELFPAY ==
--- NOTE | 2021-01-02 06:00 | DI.RAD_ITS ---
Exam(s) XR PAIN CLINIC SACRIOILIAC 2V EXAM: XR PAIN CLINIC SACRIOILIAC 2V CLINICAL HISTORY: Dx: Sacroiliac Joint Dysfunction TECHNIQUE: 2D and realtime digital imaging was performed. COMPARISON: No exams were available for comparison FINDINGS: C-arm fluoroscopy was utilized by Dr. Nuñez during bilateral SI joint injection. Hard copies confirm bilateral SI joint injections. IMPRESSION: RADIATION DOSE DELIVERED: Ka,r=6.14 mGy
[2021-01-02 09:00] VITALS: BP 101/59; PULSE 84; RESP 18; TEMP 37.2; O2SAT 100
[2021-01-02 09:28] VITALS: BP 112/74; PULSE 67; RESP 13; O2SAT 99
[2021-01-02] MEDS: Omnipaque 240 MG/ML 50 ML BTL IJ (09:30)
[2021-01-02] MEDS: methylPREDNISolone ACETATE 80 MG/ML VIAL IJ (09:30)
--- NOTE | 2021-01-02 09:40 | PDOC.PAIN_ITS ---
Pain Clinic Procedure Note Procedure Note Procedure Note: Date of service: January 02, 2021 INTRA-ARTICULAR SI JOINT INJECTION YUNIEL CAMILO has been referred to the [facility] for intra- articular SI joint injection. COMMENTS: Pre-procedure VAS is 5/10. This is a repeat procedure from 09/10/20 in which she had >3months of relief. DX: sacroiliac joint dysfunction Patient was interviewed and the medical record reviewed. There were no medical, pharmacologic, radiographic or other structural contraindications to attempting fluoroscopically guided intra-articular SI joint injection. Risks and expected side effects as well as potential benefit of the procedure were reviewed and voiced concerns addressed. The printed consent form was signed and witnessed. Standard time-out procedure was performed. Patient was placed in the prone position on the fluoroscopy table and automated blood pressure cuff and pulse oximeter applied. The skin entry point for approaching the bilateral SI joints was identified under the most advantageous fluoroscopic view and marked. Following thorough Chlorhexadine preparation of the skin and draping and 1% lidocaine infiltration of the skin entry point and subcutaneous tissues, a 22 gauge 3.5 spinal needle was placed under fluoroscopic guidance into bilateral SI joints was identified under the most advantageous fluoroscopic view and marked. Intra-articular placement was confirmed by a clear arthrogram resulting from the injection of 0.25ml Omnipaque 240, 1ml 1% lidocaine, and 40mg Depomedrol were injected intra-articularily into each joint followed by 1 cc of 1% Lidocaine with an initial reproduction of a significant component of the usual pain. The needles were removed without difficulty. Vital signs were stable throughout the procedure and were as recorded in the docflowsheet by the nursing staff. If given, dosages of intravenous drugs for anxiolysis and analgesia were documented in MAR. Follow up plans and appointments were discussed with the patient. Post procedure instruction was given as documented in nursing documentation and having met discharge criteria, and was discharged from the [facility]. COMMENTS: Post-procedure VAS was 4/10. Curt Nuñez DO, MPH Pain Management CC: Donte Barboza DO
== END 2021-01-02 08:54 | disposition home or self-care (01) ==
LOC: PC 08:54
PROVIDERS: PCP Family Medicine; Visit Provider Preventive Medicine Occupational Medicine
DX: M53.3 Sacrococcygeal disorders, not elsewhere classified (principal)
CPT/HCPCS: 27096; 72200; J1040; Q9967

== ENCOUNTER 2021-02-26 07:45 | Emergency (ER) | payer MEDICAID, SELFPAY ==
[2021-02-26 07:56] VITALS: BP 114/94; PULSE 82; RESP 20; TEMP 36.8; O2SAT 99
[2021-02-26 08:02] VITALS: RESP 22
--- NOTE | 2021-02-26 08:20 | W.ED.GENAD ---
Discharge Plan Disposition Patient Disposition: HOME Condition: Good Discharge Details Clinical Impression: URI (upper respiratory infection), Bronchitis Primary Care Provider: Donte Barboza ED Provider: Jorge Hardy Home Meds and New Rx's Prescriptions: New loratadine 10 mg capsule 10 mg PO DAILY Qty: 30 RF: 0 Continued Child Multivitamins Tablet,Chewable 1 tab PO DAILY RF: 0 Excedrin Extra Strength 250-250-65 mg tablet 1 tab PO PRN PRNRF: 0 buprenorphine-naloxone [Suboxone] 2-0.5 mg film 1 film SL BID MDD 4 mg Qty: 28 RF: 5 metformin 500 mg tablet 500 mg PO BID Qty: 180 RF: 3 gabapentin 600 mg tablet 600 mg PO TID 30 Days Qty: 90 RF: 11 ibuprofen 200 mg Tablet 800 mg PO Q6H PRNRF: 0 acetaminophen [Tylenol] 325 MG tablet 650 mg PO Q4H PRN PRNRF: 0 Discharge Instructions Instructions: Upper Respiratory Infection (ED) Additional Instructions: At this time you have a mild upper respiratory infection that was likely started by a virus. There is no evidence of pneumonia on your ultrasound. Because of the smoking and the postnasal drip from the mild upper respiratory infection that does cause the cough that you are feeling. Cutting down on smoking will help decrease the reactivity of your lungs. In the meantime please take the inhaler, 2 puffs every 4-6 hours as needed to help with breathing. Please take the loratadine, 10 mg every day to help decrease your congestion and nasal discharge. If you notice any worsening of your symptoms, or any new symptoms such as vomiting, diarrhea, fever, chills, shortness of breath, chest pain, numbness, weakness, or fainting , please return immediately to the emergency department for reevaluation. Please follow up with your primary care provider as soon as possible for reassessment and reevaluation. As always, it was a pleasure participating in your medical care today. Referrals: Donte Barboza DO [Primary Care Provider] - Medical Decision Making 35-year-old female with a past medical history of tobacco abuse, HSV type II, irritable bowel syndrome, PCOS, presents today for evaluation of runny nose, congestion and cough. Patient states that for the last 2 days she has had these symptoms along with the other family members in the house. She has gotten both of her Covid vaccines, the most recent being just greater than a week ago. She denies any chest pain. She denies any fever or chills. She does admit to regular tobacco use. Denies PE risk factors such as recent long car rides, immobilization, recent surgery, prior history of DVT or PE, family history of PE or DVT, morbid obesity, exogenous estrogen and smoking, hemoptysis, history of cancer. She denies any headache or neck pain. She denies any other complaints at this time. Exam demonstrates clear lung sounds, minimal erythema in the posterior pharynx. Minimal runny nose. Bedside ultrasound of the lungs demonstrates no B-lines, no evidence of infiltrate, however she does have slightly reduced lung movements in general. Suspect a component of bronchitis and reactive airway disease on top of a mild upper respiratory infection likely viral. No evidence of bacterial infection clinically at this time. We will give an inhaler with a spacer to help with her symptomatic mild shortness of breath although there is no hypoxemia or evidence of significant shortness of breath requiring any additional intervention. With no evidence of any clinical pneumonia, or pneumonia on ultrasound, I see no indication for antibiotics at this time. Will give loratadine to help with the congestion. I do feel that her symptoms are likely secondary to postnasal drip that is bringing about the cough. I did offer an x-ray as an alternative imaging option, however patient declined at this time. Patient will be discharged home with albuterol and loratadine. Discussed red flags which to return. I have extensively reviewed the treatment plan and discharge instructions with the patient. I have addressed all patient concerns at this time. The patient was made aware of what symptoms to monitor for that would warrant a return to the emergency department. Discussed the plan with the patient, they demonstrate verbal understanding and agreement with our assessment and plan at this time. The documentation in this chart was dictated using [employer] dictation software. Please excuse any dictation errors. Additionally I did discuss with the patient the importance of smoking cessation. HPI General Date/Time Provider Initiated Documentation: 02/26/21 07:58. HPI Narrative: 35-year-old female with a past medical history of tobacco abuse, HSV type II, irritable bowel syndrome, PCOS, presents today for evaluation of runny nose, congestion and cough. Patient states that for the last 2 days she has had these symptoms along with the other family members in the house. She has gotten both of her Covid vaccines, the most recent being just greater than a week ago. She denies any chest pain. She denies any fever or chills. She does admit to regular tobacco use. Denies PE risk factors such as recent long car rides, immobilization, recent surgery, prior history of DVT or PE, family history of PE or DVT, morbid obesity, exogenous estrogen and smoking, hemoptysis, history of cancer. She denies any headache or neck pain. She denies any other complaints at this time. Related Data Home Medications Medication Instructions Recorded Confirmed acetaminophen [Tylenol] 650 mg PO Q4H PRN PRN tab 08/24/17 02/26/21 gabapentin 600 mg tablet 600 mg PO TID 30 Days #90 tab 08/14/20 02/26/21 ibuprofen 800 mg PO Q6H PRN 09/10/20 02/26/21 cwtravm-llfteuaokfift-tzutcpaw 250 1 tab PO PRN PRN 10/25/20 02/26/21 mg-250 mg-65 mg tablet pediatric multivitamin no.28 1 tab PO DAILY 10/25/20 02/26/21 metformin 500 mg tablet 500 mg PO BID #180 tab 11/25/20 02/26/21 buprenorphine 2 mg-naloxone 0.5 mg 1 film SL BID #28 each MDD 4 mg 01/13/21 02/26/21 sublingual film loratadine 10 mg PO DAILY #30 cap 02/26/21 Previous Rx's Medication Instructions Recorded acetaminophen [Tylenol] 650 mg PO Q4H PRN PRN tab 08/24/17 gabapentin 600 mg tablet 600 mg PO TID 30 Days #90 tab 08/14/20 metformin 500 mg tablet 500 mg PO BID #180 tab 11/25/20 buprenorphine 2 mg-naloxone 0.5 mg 1 film SL BID #28 each MDD 4 mg 01/13/21 sublingual film loratadine 10 mg PO DAILY #30 cap 02/26/21 Allergies Allergy/AdvReac Type Severity Reaction Status Date / Time codeine Allergy Severe Anaphylaxsi Verified 02/26/21 07:56 s Penicillins Allergy Severe Anaphylaxsi Verified 02/26/21 07:56 s General Stated Complaint: SOB DMITRY: 3 Review of Systems All systems reviewed & are unremarkable except as noted in HPI and below [facility] Medical History Adjustment disorder with anxiety (05/25/16) Atypical squamous cells of undetermined significance with positive high risk human papillomavirus (11/12/05) Chronic bilateral low back pain with sciatica Encounter for supervision of low-risk first in third trimester (06/30/17) Encounter for supervision of normal first in second trimester (04/13/17) Gastroesophageal reflux disease (01/04/15) Herpes simplex virus type 2 (HSV-2) infection affecting in third trimester (07/16/17) History of chronic bronchitis Irritable bowel syndrome with constipation Labial lesion (07/12/17) HSV2 (+) by PCR viral culture Migraine (04/29/15) Opioid dependence on agonist therapy (06/24/15) self treating, 01/04/15 eval, [facility] rx; prescibed & counselling started 01/11/15; ; progressed to 8 wk visits 03/2015; chg Subutex 12/2016 (); [facility] counselling Polycystic ovarian syndrome (01/08/02) Hx of irreg menses. Polycystic ovarian syndrome 03/30/2016 neg.; Metformin rx Sciatica Scoliosis Supervision of normal first in first trimester (02/09/17) Tobacco abuse (01/04/15) 1 PPD dec to 0.5 PPD Toothache (06/24/15) Family History Father Diabetes Hypertension Renal failure dialysis started 2017. EO Brother Personal history of malignant neoplasm T cell leukemia in remission since 2004 Cancer T-Cell Leukemia Mother Asthma Depression Grandfather , Colon CA at age 68. Substance abuse Grandmother Essential hypertension Diabetes Depression Paternal Grandmother Diabetes Maternal Grandfather Heart disease Substance abuse Social History Smoking/Tobacco Use Status: Current every day Tobacco Type: cigarettes Tobacco: How many years used: 18 Quit status: considering quitting Smoking risk assessment performed?: Yes Alcohol Intake: never Drug use: Occasionally Substance use type: former substance user and marijuana Caregiver/Support person: No Household members: significant other and children Housing: house Number of Children: 1 Communication Needs: None Do you need help understanding health information?: Rarely Pets and animals: Yes Pets and animals: cat(s) Sexually active: Yes Do you think of yourself as: straight/heterosexual Current gender identity: female What is your relationship status?: living with partner How often do you talk on the phone with friends or family?: twice per week How often do you get together with friends or relatives?: once per week How often do you attend hinduism or sabianist services?: decline to answer Do you belong to any clubs or organized social groups?: no Panel score (0-1 are the most socially isolated patients): 2 What type of physical activity do you participate in: none Special mir needs: No Seatbelt use: never Helmet use: No Drive intox or ride w/intox electric pile driver operator: No Do you feel safe at home: Yes Do you feel safe in your relationship?: Yes Exam Narrative Exam Narrative: 1.Const: Well-nourished, Well-developed, appearing stated age 2.Eyes: PERRL, no conjunctival injection, and symmetrical lids. 3.ENT: Atraumatic external nose and ears. Moist MM. Neck: Symmetric, trachea midline, No thyromegaly. No evidence of otitis media. Minimal erythema in the posterior pharynx, no tonsillar enlargement or exudate. 4.CVS: +S1/S2, No murmurs or gallops. Peripheral pulses 2+ and equal in all extremities. Brisk capillary refill in all extremities. 5.RESP: Unlabored respiratory effort. Clear to auscultation bilaterally. No wheezes rales or rhonchi 6.GI: Soft, Nontender/Nondistended, No hepatosplenomegaly. No guarding or rebound. 7.MSK: Normocephalic/Atraumatic, Extremities w/o deformity or ttp No cyanosis or clubbing, Normal movement of all extremities 8.Skin: Warm, Dry. No rashes or lesions. 9.Neuro: armature winder II-XII grossly intact. Sensation grossly intact, no focal neurologic deficits. 10.Psych: (AAO) x3. Appropriate mood and affect Course Vital Signs Vital signs: Vital Signs Temperature 36.8 C 02/26/21 07:56 Pulse 82 02/26/21 07:56 Respiratory Rate 20 02/26/21 07:56 Blood Pressure 114/94 H 02/26/21 07:56 Pulse Oximetry 99 02/26/21 07:56 Temperature 36.8 C 02/26/21 07:56 Temperature Source Skin 02/26/21 07:56 Pulse 82 02/26/21 07:56 Respiratory Rate 22 02/26/21 08:02 Respiratory Effort Non-Labored 02/26/21 08:02 Respiratory Depth Normal 02/26/21 08:02 Respiratory Pattern Normal 02/26/21 08:02 Blood Pressure 114/94 H 02/26/21 07:56 Blood Pressure Position Sitting 02/26/21 07:56 Pulse Oximetry 99 02/26/21 07:56 Oxygen Delivery Method Room Air 02/26/21 07:56 Oxygen Flow Rate 0 02/26/21 07:56 Pain Level 0 02/26/21 07:56
[2021-02-26] MEDS: Albuterol HFA 8 GM 60 PUFF INH IH (08:35)
[2021-02-26 08:37] VITALS: BP 125/62; PULSE 72; O2SAT 98
[2021-02-26] MEDS: Inhaler, Assist Device 1 EACH MC (08:37)
== END 2021-02-26 08:46 | disposition home or self-care (01) ==
PROVIDERS: Emergency Provider Student in an Organized Health Care Education/Training Program; PCP Family Medicine
DX: J06.9 Acute upper respiratory infection, unspecified (principal); J20.9 Acute bronchitis, unspecified
CPT/HCPCS: 94640; 99283

== ENCOUNTER 2021-04-03 09:17 | Outpatient (CLI) | payer MEDICAID, SELFPAY ==
--- NOTE | 2021-04-03 06:00 | DI.RAD_ITS ---
Exam(s) XR PAIN CLINIC SACRIOILIAC 2V EXAM: XR PAIN CLINIC SACRIOILIAC 2V CLINICAL HISTORY: Dx: Sacroiliac Joint Dysfunction TECHNIQUE: 2D and realtime digital imaging was performed. Radiologist not present. CONTRAST MATERIAL: None. COMPARISON: No exams were available for comparison FINDINGS: Fluoroscopy was provided for pain management therapy. Bilateral sacroiliac joint injections. Please refer to procedure report or details. Radiologist not present for this procedure Total fluoroscopy time 22 seconds. Cumulative dose: Anushar=4.08 mGy IMPRESSION: RADIATION DOSE DELIVERED:
[2021-04-03 09:31] VITALS: BP 135/59; PULSE 68; RESP 18; TEMP 36.9; O2SAT 99
[2021-04-03] MEDS: Omnipaque 240 MG/ML 50 ML BTL IJ (10:06)
--- NOTE | 2021-04-03 10:06 | PDOC.PAIN_ITS ---
Pain Clinic Procedure Note Procedure Note Procedure Note: INTRA-ARTICULAR SI JOINT INJECTION Mariya Navas has been referred to the [facility] for intra- articular SI joint injection. COMMENTS: She did very well with this procedure which was previously completed here on 01/02/21 and 09/10/20. Preprocedure pain VAS: 4/10 Preprocedure diagnosis: Sacroiliac joint dysfunction Post-procedure diagnosis: Same Patient was interviewed and the medical record reviewed. There were no medical, pharmacologic, radiographic or other structural contraindications to attempting fluoroscopically guided intra-articular SI joint injection. Risks and expected side effects as well as potential benefit of the procedure were reviewed and voiced concerns addressed. The printed consent form was signed and witnessed. Standard time-out procedure was performed. Patient was placed in the prone position on the fluoroscopy table and automated blood pressure cuff and pulse oximeter applied. The skin entry point for approaching bilateral SI joints was identified under the most advantageous fluoroscopic view and marked. Following thorough Chlorhexadine preparation of the skin and draping and 1% lidocaine infiltration of the skin entry point and subcutaneous tissues, a 22 gauge spinal needle was placed under fluoroscopic guidance into bilateral SI joints was identified under the most advantageous fluoroscopic view and marked. Intra-articular placement was confirmed by a clear arthrogram resulting from the injection of 0.25ml Omnipaque 240, 1ml 1% lidocaine, and 40mg Depomedrol were injected intra-articularily into each SI joint with an initial reproduction of a significant component of the usual pain. Vital signs were stable throughout the procedure and were as recorded in the docflowsheet by the nursing staff. If given, dosages of intravenous drugs for anxiolysis and analgesia were documented in MAR. Follow up plans and appointments were discussed with the patient. Post procedure instruction was given as documented in nursing documentation and having met discharge criteria, and was discharged from the [facility]. COMMENTS: Post-procedure pain VAS: 110 Curt Nuñez DO, MPH Pain Management CC: Donte Barboza DO
[2021-04-03] MEDS: methylPREDNISolone ACETATE 80 MG/ML VIAL IJ (10:07)
[2021-04-03 10:15] VITALS: BP 110/64; PULSE 61; RESP 13; O2SAT 98
== END 2021-04-03 09:18 | disposition home or self-care (01) ==
PROVIDERS: PCP Family Medicine; Visit Provider Preventive Medicine Occupational Medicine
DX: M53.3 Sacrococcygeal disorders, not elsewhere classified (principal)
CPT/HCPCS: 27096; 72200; J1040; Q9967

== ENCOUNTER 2021-06-01 20:49 | Emergency (ER) | payer MEDICAID, SELFPAY | END 2021-06-01 21:15 | PROVIDERS: PCP Family Medicine | DX: R69 Illness, unspecified (principal) ==

== ENCOUNTER 2021-06-02 11:10 | Emergency (ER) | payer MEDICAID, SELFPAY ==
[2021-06-02 11:17] VITALS: BP 123/68; PULSE 72; TEMP 35.8; O2SAT 100
--- NOTE | 2021-06-02 12:15 | DI.RAD_ITS ---
Exam(s) XR PORTABLE CHEST AP EXAM: XR PORTABLE CHEST AP CLINICAL HISTORY: Cough Congestion, R/O PNA TECHNIQUE: 2D digital imaging was performed. COMPARISON: CR XR CHEST 2V PA LATERAL from 03/26/2020 FINDINGS: LUNGS: Clear. No pleural abnormality seen. HEART: Normal. MEDIASTINUM: Normal. BONES: Unremarkable. IMPRESSION: No acute pulmonary findings. DATA REPOSITORY: RADIATION DOSE DELIVERED:
--- NOTE | 2021-06-02 12:16 | ED.GENADUL_ITS ---
Discharge Plan Disposition Patient Disposition: HOME Condition: Stable Discharge Details Clinical Impression: Viral upper respiratory illness Primary Care Provider: Donte Barboza ED Provider: Tashia Negron Home Meds and New Rx's Prescriptions: New albuterol sulfate 90 mcg/actuation HFA aerosol inhaler 2 puff IH QID PRN (Reason: shortness of breath or wheezing) Qty: 8 RF: 0 No Action Child Multivitamins Tablet,Chewable 1 tab PO DAILY RF: 0 Excedrin Extra Strength 250-250-65 mg tablet 1 tab PO PRN PRNRF: 0 buprenorphine-naloxone [Suboxone] 2-0.5 mg film 1 film SL BID MDD 4 mg Qty: 28 RF: 5 metformin 500 mg tablet 500 mg PO BID Qty: 180 RF: 3 promethazine 25 mg tablet 25 mg PO Q6H PRN (Reason: migraine headache) Qty: 30 RF: 0 sumatriptan succinate 100 mg tablet See Rx Instructions PO .COMPLEX Qty: 14 RF: 11 topiramate 25 mg tablet 25 mg PO BID Qty: 180 RF: 1 gabapentin 600 mg tablet 600 mg PO TID 30 Days Qty: 90 RF: 11 ibuprofen 200 mg Tablet 800 mg PO Q6H PRNRF: 0 acetaminophen [Tylenol] 325 MG tablet 650 mg PO Q4H PRN PRNRF: 0 Discharge Instructions Instructions: How to Stop Smoking (ED), Upper Respiratory Infection (ED) Additional Instructions: At this time on the x-ray there is no evidence for pneumonia. If this is a viral illness that can take up to 4 to 6 weeks for resolution. Please return to the emergency department for any worsening shortness of breath, fever, chest pain or any further concerns. Follow up with primary care provider in 3-5 days. Return to ED sooner if any worsening or concerns. Increase oral fluids. Please take Tylenol or Ibuprofen with food every 4-6 hours as needed for pain and swelling. A prescription for a new albuterol inhaler was sent to the pharmacy we have on file for you. Please do not take that any more than 4- 6 times in a 24-hour period. Please try to smoking if possible. Referrals: Donte Barboza DO [Primary Care Provider] - 5 days Discharge Data Discharge Date/Time-TO BE ENTERED AT DEPARTURE: 06/02/21 13:24 Medical Decision Making 45-year-old female presents to the ER with chief complaint of runny nose, cough and congestion with some expiratory wheezing for the last 2 weeks. Patient was sent here by her primary care provider. She does work in [place]. And states that she has gotten Covid tested on which is all been negative. She denies any sick contact however. She reports using an albuterol inhaler that she had found from a previous visit which she has used approximately 4 times a day. On initial exam she does have some upper lobe wheezing bilaterally. Posterior oropharynx is slightly erythemic no exudate, bilateral tympanic membranes are within normal limits. She denies any nausea vomiting diarrhea or abdominal pain. She is a daily smoker. She reports productive cough with dark yellow sputum. 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 I did offer a albuterol nebulization which patient declined at this time. O2 sat is 100% on room air. Patient discharged with new prescription for albuterol inhaler. Instructed to follow-up with primary care provider in 3 to 5 days. Discussed return instructions. This text was generated using Funderaation system, please disregard any oddities of phrase or misspellings. HPI General Mode of arrival: ambulatory . Date/Time Provider Initiated Documentation: 06/02/21 11:28 . Limitations to Documentation: no limitations . Information obtained by: patient and RN notes reviewed . HPI Narrative: 45-year-old female presents to the ER with chief complaint of runny nose, cough and congestion with some expiratory wheezing for the last 2 weeks. Patient was sent here by her primary care provider. She does work in a [place]. And states that she has gotten Covid tested on which is all been negative. She denies any sick contact however. She reports using an albuterol inhaler that she had found from a previous visit which she has used approximately 4 times a day. On initial exam she does have some upper lobe wheezing bilaterally. Posterior oropharynx is slightly erythemic no exudate, bilateral tympanic membranes are within normal limits. She denies any nausea vomiting diarrhea or abdominal pain. She is a daily smoker. She reports productive cough with dark yellow sputum. Related Data Home Medications Medication Instructions Recorded Confirmed acetaminophen [Tylenol] 650 mg PO Q4H PRN PRN tab 08/24/17 06/02/21 gabapentin 600 mg tablet 600 mg PO TID 30 Days #90 tab 08/14/20 06/02/21 ibuprofen 800 mg PO Q6H PRN 09/10/20 06/02/21 [id number]-tyvwmfcs 250 1 tab PO PRN PRN 10/25/20 06/02/21 mg-250 mg-65 mg tablet pediatric multivitamin no.28 1 tab PO DAILY 10/25/20 06/02/21 metformin 500 mg tablet 500 mg PO BID #180 tab 11/25/20 06/02/21 buprenorphine 2 mg-naloxone 0.5 mg 1 film SL BID #28 each MDD 4 mg 04/07/21 06/02/21 sublingual film promethazine 25 mg tablet 25 mg PO Q6H PRN #30 tab 05/13/21 06/02/21 sumatriptan succinate 100 mg tablet See Rx Instructions PO .COMPLEX 05/13/21 06/02/21 #14 tab topiramate 25 mg tablet 25 mg PO BID #180 tab 05/13/21 06/02/21 albuterol sulfate 2 puff IH QID PRN #8 gm 06/02/21 Previous Rx's Medication Instructions Recorded acetaminophen [Tylenol] 650 mg PO Q4H PRN PRN tab 08/24/17 gabapentin 600 mg tablet 600 mg PO TID 30 Days #90 tab 08/14/20 metformin 500 mg tablet 500 mg PO BID #180 tab 11/25/20 buprenorphine 2 mg-naloxone 0.5 mg 1 film SL BID #28 each MDD 4 mg 04/07/21 sublingual film promethazine 25 mg tablet 25 mg PO Q6H PRN #30 tab 05/13/21 sumatriptan succinate 100 mg tablet See Rx Instructions PO .COMPLEX 05/13/21 #14 tab topiramate 25 mg tablet 25 mg PO BID #180 tab 05/13/21 albuterol sulfate 2 puff IH QID PRN #8 gm 06/02/21 Allergies Allergy/AdvReac Type Severity Reaction Status Date / Time codeine Allergy Severe Anaphylaxsi Verified 06/02/21 11:22 s Penicillins Allergy Severe Anaphylaxsi Verified 06/02/21 11:22 s General Stated Complaint: RespSymp DMITRY: 3 Review of Systems All systems reviewed & are unremarkable except as noted in HPI and below Constitutional Constitutional: Reports body ache(s), Reports fatigue, Denies fever(s) and Reports lethargy Respiratory Respiratory: Reports as per HPI, Reports change in phlegm color, Reports cough, Denies hemoptysis and Reports wheezing Gastrointestinal Gastrointestinal: Denies diarrhea, Denies nausea and Denies vomiting Endocrine Endocrine: Reports fatigue Allergic/Immunologic Allergic/Immunologic: Reports wheezing [facility] Medical History (Updated 06/02/21 @ 13:13 by Tashia Negron) Adjustment disorder with anxiety (05/25/16) Atypical squamous cells of undetermined significance with positive high risk human papillomavirus (11/12/05) Chronic bilateral low back pain with sciatica Encounter for supervision of low-risk first in third trimester (06/30/17) Encounter for supervision of normal first in second trimester (04/13/17) Gastroesophageal reflux disease (01/04/15) 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 Polycystic ovarian syndrome US 03/30/2016 neg.; Metformin rx Sciatica Scoliosis Supervision of normal first in first trimester (02/09/17) Tobacco abuse (01/04/15) 1 PPD dec to 0.5 PPD Toothache (06/24/15) Family History Father Diabetes Hypertension Renal failure dialysis started 2017. EO Brother Personal history of malignant neoplasm T cell leukemia in remission since 2004 Cancer T-Cell Leukemia Mother Asthma Depression Grandfather , Colon CA at age 68. Substance abuse Grandmother Essential hypertension Diabetes Depression Paternal Grandmother Diabetes Maternal Grandfather Heart disease Substance abuse Social History Smoking/Tobacco Use Status: Current every day Tobacco Type: cigarettes Tobacco: How many years used: 18 Quit status: considering quitting Smoking risk assessment performed?: Yes Alcohol Intake: never Drug use: Occasionally Substance use type: former substance user and marijuana Caregiver/Support person: No Household members: significant other and children Housing: house Number of Children: 1 Communication Needs: None Do you need help understanding health information?: Rarely Pets and animals: Yes Pets and animals: cat(s) Sexually active: Yes Do you think of yourself as: straight/heterosexual Current gender identity: female What is your relationship status?: living with partner How often do you talk on the phone with friends or family?: twice per week How often do you get together with friends or relatives?: once per week How often do you attend quaker or mosque services?: decline to answer Do you belong to any clubs or organized social groups?: no Panel score (0-1 are the most socially isolated patients): 2 What type of physical activity do you participate in: none Special mir needs: No Seatbelt use: never Helmet use: No Drive intox or ride w/intox construction driver: No Do you feel safe at home: Yes Do you feel safe in your relationship?: Yes Exam Narrative Exam Narrative: Constitutional: Alert and oriented x3. Appears stated age. Normal body habitus. Head: Normocephalic, no trauma. Eyes: Pupils PERRLA, Red reflex noted, EOM's intact. Eyelids symmetrical without lesions, discharge, or swelling. ENT: Bilateral TM's WNL, External ear normal to inspection, no mastoid TTP, swelling, or erythema, Nasal turbinates WNL, no nasal discharge. Normal dentition, Posterior pharynx WNL, no exudate. Chest: RRR, Normal S1, S2, distal pulses intact. Resp: Prolonged expiratory. Noted, mild wheezes noted to the upper lobes on expiration. Musculoskeletal: Normal gait, 5/5 strength to all four extremities. Skin: No suspicious rashes or lesions. Capillary refill less than 2 sec. Neurologic: Cranial nerves II-XII intact. Alert and oriented x 3. DTR's intact. Hematologic/Lymphatic: No ecchymosis, no lymphadenopathy. Course Vital Signs Vital signs: Vital Signs Temperature 35.8 C L 06/02/21 11:17 Pulse 72 06/02/21 11:17 Blood Pressure 123/68 06/02/21 11:17 Pulse Oximetry 100 06/02/21 11:17 Temperature 35.8 C L 06/02/21 11:17 Temperature Source Temporal Artery Scan 06/02/21 11:17 Pulse 72 06/02/21 11:17 Respiratory Effort 06/02/21 11:25 Blood Pressure 123/68 06/02/21 11:17 Pulse Oximetry 100 06/02/21 11:17 Oxygen Delivery Method Room Air 06/02/21 11:17 Oxygen Flow Rate 0 06/02/21 11:17
[2021-06-02 12:36] VITALS: BP 131/80; PULSE 64; RESP 18; O2SAT 100
[2021-06-02 13:28] VITALS: RESP 18; O2SAT 100
[2021-06-04 13:00] LABS: COVID-19 RT-PCR UVMMC Result Negative (Negative)
== END 2021-06-02 13:24 | disposition home or self-care (01) ==
PROVIDERS: Emergency Provider Registered Nurse Emergency; PCP Family Medicine
DX: J06.9 Acute upper respiratory infection, unspecified (principal); F17.210 Nicotine dependence, cigarettes, uncomplicated
CPT/HCPCS: 99283; U0003; 71045

== ENCOUNTER 2021-06-17 01:37 | Outpatient (CLI) | payer MEDICAID, SELFPAY ==
--- NOTE | 2021-06-17 15:30 | DI.CT_ITS ---
Exam(s) CT HEAD WO EXAM: CT HEAD WO CLINICAL HISTORY: Refractory headache,MIGRAINE,G43.109. TECHNIQUE: Imaging Protocol: Axial computed tomography images with coronal and sagittal reformatted images were created and reviewed COMPARISON: No exams were available for comparison FINDINGS: Ventricles and Extra axial spaces: Normal in size and morphology for the patient's age. Hemorrhage: None. Cerebral parenchyma: Normal. Midline shift: None. Brainstem/Cerebellum: Normal. Calvarium: Normal. Visualized Paranasal sinuses/Mastoids: Clear. Soft Tissues: Unremarkable. IMPRESSION: No acute intracranial process. RADIATION DOSE DELIVERED: 702.6mGy.cm Total DLP DATA REPOSITORY: All CT scans at this facility are submitted to the National Radiology Data Registry (NRDR) Dose Index Registry (DIR) with the [employer] (A[employer]). RADIATION OPTIMIZATION: All CT scans at this facility use at least one of these dose optimization te chniques: automated exposure control; mA and/or kV adjustment per patient size (includes targeted exa ms where dose is matched to clinical indication); or iterative reconstruction.
== END 2021-06-17 01:57 ==
PROVIDERS: PCP Family Medicine; Visit Provider Family Medicine
DX: G43.109 Migraine with aura, not intractable, without status migrainosus (principal)
CPT/HCPCS: 70450

== ENCOUNTER → 2022-02-10 01:48 | Outpatient (CLI) | payer MEDICAID, SELFPAY ==
--- NOTE | 2022-02-10 08:00 | DI.MRI_ITS ---
Exam(s) MR BRAIN WO EXAM: MR BRAIN WO CLINICAL HISTORY: worsening headaches, not responsing to treatment,MIGRAINE,G43.909 TECHNIQUE: Multiplanar multisequence MRI of the brain was performed. COMPARISON: No exams were available for comparison FINDINGS: CEREBRAL PARENCHYMA: There is no evidence of intracranial hemorrhage, mass effect, or shift of midline structures. There are no extra-axial fluid collections. Ventricles are not enlarged or shifted. There is no significant focal signal abnormality in the cerebellar hemispheres nor within the robert, m idbrain, and thalami. There is no prominent abnormal signal abnormality in the periventricular white matter. There are few tiny nonspecific 1-2 millimeter foci of white matter signal abnormality FLAIR bright. These are non specific findings. No associated hemorrhage, surrounding edema nor abnormal signal on diffusion imag ing. There is no significant focal signal abnormality evident on diffusion imaging to suggest acute ischem ic event. PITUITARY GLAND: No mass nor parasellar abnormality. No obvious abnormality in the cavernous sinuses. FLOW VOIDS: The expected flow void are noted. No evidence of obvious aneurysm nor obvious vascular ma lformation. PARANASAL SINUSES: The visualized paranasal sinuses appear unremarkable. No obvious finding ORBITS: No obvious findings. IMPRESSION: No significant intracranial findings on this noninfused MRI scan of the brain. DATA REPOSITORY:
== END ==
PROVIDERS: PCP Family Medicine; Visit Provider Nurse Practitioner Adult Health
DX: G43.909 Migraine, unspecified, not intractable, without status migrainosus (principal)
CPT/HCPCS: 70551

== ENCOUNTER 2022-06-25 03:49 | Outpatient (CLI) | payer MEDICAID, SELFPAY ==
[2022-06-25 12:33] LABS: Abs Immature Grans 0.12 10^3/uL (0.0-0.06); Absolute Basophil Count 0.08 10^3/uL (0.0-0.2); Absolute Eosinophil Count 0.12 10^3/uL (0.0-0.7); Absolute Lymphocyte Count 2.64 10^3/uL (1.2-3.4); Absolute Monocyte Count 0.38 10^3/uL (0.1-0.8); Absolute Neutrophil Count 2.36 10^3/uL (1.2-6.7); Basophils % 1.4; Eosinophils % 2.1; HCT 41.4 % (36.0-46.0); HGB 13.6 g/dL (11.2-15.7); Immature Grans % 2.1; Lymphocytes % 46.3; MCH 29.8 pg (27.0-33.0); MCHC 32.9 % (32.0-36.0); MCV 91 fL (80-95); MPV 11.9 fL (8.0-11.0); Monocytes % 6.7; Neutrophils % 41.4; RBC 4.56 10^6/uL (3.93-5.22); RDW 13.4 % (11.7-14.6); RDW-SD 44.8 fL
[2022-06-25 12:52] LABS: Iron 87 ug/dL (50-170); Total Iron Binding Capacity 331 ug/dL (250-450); Transferrin Sat 26 % (15-50)
[2022-06-25 13:02] LABS: ALT 14 U/L (14-59); AST 17 U/L (15-37); Albumin 4.3 g/dL (3.4-5.0); Alkaline Phosphatase 49 U/L (46-116); Anion Gap 8.7 mmol/L (3-11); BUN 7 mg/dL (7-18); Bilirubin, Total 0.5 mg/dL (0.2-1.0); CO2 25.3 mmol/L (21.0-32.0); Calcium 9.4 mg/dL (8.5-10.1); Chloride 105 mmol/L (98-107); Estimated GFR 75.81 (mL/min/1.73m2); Glucose 96 mg/dL (74-106); Magnesium 1.6 mg/dL (1.8-2.4); Potassium 4.1 mmol/L (3.5-5.1); Sodium 139 mmol/L (136-145); Total Protein 7.4 g/dL (6.4-8.2); Vitamin B12 511 pg/mL (193-986)
[2022-06-25 13:23] LABS: Platelet Count 202 10^3/uL (130-400)
[2022-06-25 18:27] LABS: CRP, High Sensitivity <0.34 mg/L (See Note)
== END 2022-06-25 03:50 | disposition home or self-care (01) ==
LOC: LOS 03:49
PROVIDERS: PCP Family Medicine; Visit Provider Family Medicine
DX: R11.15 Cyclical vomiting syndrome unrelated to migraine (principal); R20.2 Paresthesia of skin
CPT/HCPCS: 36415; 80053; 86141; 82607; 83540; 83550; 83735; 85025

== ENCOUNTER 2022-07-01 10:57 | Outpatient (CLI) | payer MEDICAID, SELFPAY ==
[2022-07-01 11:06] VITALS: BP 103/63; PULSE 67; RESP 20; TEMP 36.7; O2SAT 94
--- NOTE | 2022-07-01 11:30 | DI.RAD_ITS ---
Exam(s) XR PAIN CLINIC SACRIOILIAC 2V EXAM: XR PAIN CLINIC SACRIOILIAC 2V CLINICAL HISTORY: Dx: Sarcoiliac Joint Dysfunction. TECHNIQUE: Fluoroscopy was provided for the referring physician for guidance with performing pain cl inic injection procedure. COMPARISON: No exams were available for comparison FINDINGS: Bilateral SI joint injection. Please see procedure note for details. Fluoro time: 39.7 seconds RADIATION DOSE DELIVERED: Ka,r=5.65 mGy
--- NOTE | 2022-07-01 11:31 | PDOC.PAIN_ITS ---
Date of service: 07/01/22 Time of Service: 11:34 Pain Clinic Procedure Note Procedure Note Procedure Note: INTRA-ARTICULAR SI JOINT INJECTION Mariya Navas has been referred to the [facility] for intra- articular SI joint injection. COMMENTS: She did very well with this procedure from 04/03/2021 with >1 year relief. Pre-procedure pain VAS was 7/10. Dx: Sacroiliac joint dysfunction Patient was interviewed and the medical record reviewed. There were no medical, pharmacologic, radiographic or other structural contraindications to attempting fluoroscopically guided intra-articular SI joint injection. Risks and expected side effects as well as potential benefit of the procedure were reviewed and voiced concerns addressed. The printed consent form was signed and witnessed. Standard time-out procedure was performed. Patient was placed in the prone position on the fluoroscopy table and automated blood pressure cuff and pulse oximeter applied. The skin entry point for approaching the bilateral SI joints was identified under the most advantageous fluoroscopic view and marked. Following thorough Chlorhexadine preparation of the skin and draping and 1% lidocaine infiltration of the skin entry point and subcutaneous tissues, a 22 gauge spinal needle was placed under fluoroscopic guidance into the bilateral SI joints was identified under the most advantageous fluoroscopic view and marked. Intra-articular placement was confirmed by a clear arthrogram resulting from the injection of 0.25ml Omnipaque 240, 1ml 1% lidocaine, and 40mg Depomedrol were injected intra-articularily into each joint with an initial reproduction of a significant component of the usual pain. Vital signs were stable throughout the procedure and were as recorded in the docflowsheet by the nursing staff. If given, dosages of intravenous drugs for anxiolysis and analgesia were documented in MAR. Follow up plans and appointments were discussed with the patient. Post procedure instruction was given as documented in nursing documentation and having met discharge criteria, and was discharged from the [facility]. COMMENTS: Post-procedure pain VAS = 0/10. Curt Nuñez DO, MPH [facility]-Pain Management [facility] CC: Donte Barboza DO
[2022-07-01 11:35] VITALS: BP 119/73; PULSE 59; RESP 10; O2SAT 99
[2022-07-01] MEDS: methylPREDNISolone ACETATE 80 MG/ML VIAL IJ (11:37)
[2022-07-01] MEDS: Omnipaque 240 MG/ML 50 ML BTL IJ (11:38)
== END 2022-07-01 10:58 | disposition home or self-care (01) ==
PROVIDERS: PCP Family Medicine; Visit Provider Preventive Medicine Occupational Medicine
DX: M54.50 Low back pain, unspecified (principal); M53.3 Sacrococcygeal disorders, not elsewhere classified
CPT/HCPCS: 27096; 72200; J1040; Q9967

== ENCOUNTER → 2022-07-03 00:41 | Outpatient (CLI) | payer MEDICAID, SELFPAY ==
--- NOTE | 2022-07-03 07:30 | DI.RAD_ITS ---
Exam(s) XR CERVICAL SPINE COMP 4-5V EXAM: XR CERVICAL SPINE COMP 4-5V CLINICAL HISTORY: Persistent neck pain,m54.2. TECHNIQUE: 2D digital imaging was performed. COMPARISON: No exams were available for comparison FINDINGS: Five views: No evidence of fracture, listhesis, nor offset of the spinal laminar line. There is minimal disc spa ce narrowing at C5-6 level and on the oblique views there is a small left-sided Luschka joint osteoph yte at this level. There is slight reversal of the normal curvature at this level. Facet joints appear unremarkable. T here are no cervical ribs. IMPRESSION: Subtle evidence of degenerative disc disease at C5-6 level. If clinically indicated follow-up MRI ca n be performed. DATA REPOSITORY: RADIATION DOSE DELIVERED:
== END ==
PROVIDERS: PCP Family Medicine; Visit Provider Family Medicine
DX: M47.812 Spondylosis without myelopathy or radiculopathy, cervical region (principal)
CPT/HCPCS: 72050

== ENCOUNTER → 2022-07-31 01:24 | Outpatient (CLI) | payer MEDICAID, SELFPAY ==
--- NOTE | 2022-07-31 06:15 | DI.MRI_ITS ---
Exam(s) MR CERVICAL SPINE WO EXAM: MR CERVICAL SPINE WO CLINICAL HISTORY: ? c5-6 disc herniation,cervicalagia, m54.2 TECHNIQUE: Multiplanar multisequence MRI of the cervical spine was performed without intravenous con trast. COMPARISON: CR XR CERVICAL SPINE COMP 4-5V from 07/03/2022 FINDINGS: BONES: Vertebral body heights are maintained. Alignment is normal. Bone marrow signal intensity is wi thin normal limits. CERVICAL CORD: Craniovertebral junction is unremarkable. The cervical cord is normal size and signal intensity. SOFT TISSUES: Unremarkable. C2-3: No disc herniation or bulge is identified. No evidence of neural foraminal narrowing. No signi ficant central canal stenosis C3-4: No disc herniation or bulge is identified. No evidence of neural foraminal narrowing. No signif icant central canal stenosis C4-5: Minimal disc osteophyte prominence. No evidence of neural foraminal narrowing. No significant central canal stenosis C5-6: Minimal endplate osteophytes. Small focal central disc protrusion without evidence of impingem ent on the cord.No evidence of neural foraminal narrowing. No significant central canal stenosis C6-7: No disc herniation or bulge is identified. No evidence of neural foraminal narrowing. No signif icant central canal stenosis C7-T1: No disc herniation or bulge is identified. No evidence of neural foraminal narrowing. No signi ficant central canal stenosis IMPRESSION: Small central disc protrusion at C5-6. DATA REPOSITORY:
== END ==
PROVIDERS: PCP Family Medicine; Visit Provider Family Medicine
DX: M50.222 Other cervical disc displacement at C5-C6 level (principal)
CPT/HCPCS: 72141

== ENCOUNTER 2022-08-27 06:56 | Day surgery (SDC) | payer MEDICAID, SELFPAY ==
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
--- NOTE | 2022-08-26 19:20 | W.PM.DSUDISC ---
Date of service: 08/27/22 Time of Service: 08:43 Discharge Plan Disposition Patient Disposition: Home Condition: Good Discharge Details Reason For Visit: EGD Attending Provider: Mac Figueredo Primary Care Provider: Donte Barboza Home Meds and New Rx's Prescriptions: New sucralfate [Carafate] 1 gram tablet 1 g PO QAC Qty: 90 2RF Rx Instructions: Take 1 pill every night Continued gabapentin 600 mg tablet 600 mg PO TID Qty: 270 3RF Rx Instructions: no abrupt cessation prochlorperazine maleate 5 mg tablet See Rx Instructions PO TID PRN (Reason: headaches) Qty: 30 3RF Rx Instructions: 5-10 mg PO three times a day PRN for headaches and nausea metformin 500 mg tablet 500 mg PO BID Qty: 120 3RF Nurtec ODT 75 mg tablet,disintegrating 75 mg PO ONCE PRN (Reason: migraine headache) Qty: 15 3RF Rx Instructions: as a single dose. No more than 1 pill in 24 hours. No more than 15 doses per month. Ajovy Autoinjector 225 mg/1.5 mL auto-injector 225 mg subcut QMONTH Qty: 4.5 11RF pyridoxine (vitamin B6) 50 mg tablet 50 mg PO BID Qty: 180 1RF buprenorphine-naloxone [Suboxone] 2-0.5 mg film 1 film SL BID MDD 4 mg Qty: 28 5RF esomeprazole magnesium [Nexium 24HR] 20 mg tablet,delayed release (DR/EC) 20 mg PO DAILY Qty: 30 0RF Rx Instructions: Take 1 tablet by mouth every day cyclobenzaprine 10 mg tablet 10 mg PO HS PRN (Reason: muscle spasm) Qty: 30 0RF ibuprofen 200 mg Tablet 800 mg PO Q6H PRN acetaminophen [Tylenol] 325 MG tablet 650 mg PO Q4H PRN PRN0RF Discharge Instructions Instructions: Diet for Stomach Ulcers and Gastritis (GEN), Gastritis (DC) Additional Instructions: 1. If tolerated, consume a soft, low fiber diet for 1-2 days. [address] Do not drive, drink alcohol, operate machinery, make critical decisions, or do activities that require coordination or balance for 24 hours. 3. You may experience a sore throat for 24 to 48 hours. You may use throat lozenges or gargle with warm salt water to relieve the discomfort. 4. Because air was put into your stomach during the procedure, you may experience some belching. 5. Go directly to the emergency room if you notice any of the following: Develop chills (warm to touch), or if you have a thermometer and your temperature is above 101 Difficulty breathing or difficultly swallowing Persistent vomiting Severe abdominal pain, other than gas cramps Severe chest pain Black, tarry stools Any bleeding ? exceeding one tablespoon 6. Call your physician if the site where your intravenous was started becomes red, swollen, painful, and warm to touch. 7. Your physician has reviewed your pre-procedure medications. Please continue to take those medications as previously ordered. You will be given specific information/education regarding any changes to your medications before leaving. Activity:: Activity as Tolerated Diet:: As Tolerated Discharge Orders Discharge Orders: Discharge Order (Routine); Ordered 08/26/22 Ordered By: Mac Figueredo DS: Diagnosis Discharge Diagnosis (1) Persistent vomiting: Status: Acute Asessment and Plan: Antral gastritis -I would a prescription for Carafate, which she should start taking. Take 1 pill every night. -Continue to take your other antacids -I will contact you with results of the biopsies once those are available.
--- NOTE | 2022-08-26 19:22 | W.PM.ENDDOP ---
Date of service: 08/27/22 Time of Service: 08:43 Endoscopy Report DATE OF PROCEDURE: 08/27/22 PRE-OP DIAGNOSIS: Chronic vomiting POST-OP DIAGNOSIS: other (Antral gastritis) PROCEDURE: EGD SURGEON: Mac Figueredo ANESTHESIA TYPE: General:No Airway ESTIMATED BLOOD LOSS: 20 PATHOLOGY: other (Duodenum, antral, gastric body, esophageal biopsies) COMPLICATIONS: None DISPOSITION: same day INDICATIONS: Mariay is a 36-year-old woman with chronic vomiting. PROCEDURE START TIME: : PROCEDURE END TIME: :34 FINDINGS: Antral gastritis PROCEDURE DESCRIPTION: After the initiation of monitored anesthetic care, and with the assistance of a bite block, I advanced a standard gastroscope through the mouth past the hypopharynx and into the esophagus.? Under the direct vision of the scope, I advanced down the esophagus into the stomach.? Once I entered the stomach, I performed a brief inspection, followed by retroflexion towards the gastric cardia.? This appeared normal.? After that, I gently advanced the scope around the incisura angularis and examined the pylorus.? There was mild inflammation of the gastric antrum. Next, I advanced the scope through the pylorus into the duodenum.? The mucosa was pale.? There were no abnormalities.? I was able to visualize bile draining into the duodenum through the ampulla Vater. I perform random biopsies of the duodenum. ?Next, I began retracting the endoscope.? A I brought the scope back into the stomach, and biopsied the gastric antrum as well as the gastric body..? I then gently desufflated some of the stomach, and withdrew the endoscope into the distal esophagus. The Z-line and GE junction were normal-appearing around 37 cm. ?Finally, I withdrew the scope along the length of the esophagus taking great care to examine the entirety of the mucosa.? I did perform some random biopsies of the esophagus. I did not appreciate any abnormalities.
[2022-08-27 07:00] VITALS: BP 122/75; PULSE 96; RESP 18; TEMP 36.6; O2SAT 99
[2022-08-27] MEDS: Lactated Ringers 1,000 ML 80 ML IV (07:35)
[2022-08-27 07:56] VITALS: BMI 21.5
--- NOTE | 2022-08-27 08:30 | BOWEL_PTH ---
PATIENT: Mariya Navas LOC: [facility] U#:[id number] AGE/SX: 36/F ROOM: RE08/27/[address]: Mac Figueredo MD : [id number] BED: DIS: 08/27/2022 SPEC #: [id number] RECD: 08/27/22 11:42 STATUS: KIMBERLY RE #: [id number] JAH: 08/27/22 08:[address]: Mac Figueredo DEPT: Surgical Specimen RECD BY: Una Guerin ENTERED: 08/27/22 11:46 SP TYPE: Bowel OTHR DR: Donte Barboza DO Tissues: 1 - BIOPSY BOWEL 2 - STOMACH BIOPSY 3 - STOMACH BIOPSY 4 - ESOPHAGUS BIOPSY Procedures: GROSS AND MICRO LEVEL 4 Comments: [id number]
[2022-08-27 08:34] VITALS: BP 105/55; PULSE 85; RESP 17; TEMP 36.5; O2SAT 96
[2022-08-27 09:02] VITALS: BP 111/69; PULSE 58; RESP 16; TEMP 36.3; O2SAT 99
--- NOTE | 2022-08-27 09:02 | W.ANESPOSTOP ---
Postoperative Evaluation Date, Time and Location Date Performed: 08/27/22 Time Performed: 08:40 Patient Location: Day Surgery Unit Vital Signs Most Recent Imported Vital Signs: Most Recent Vital Signs Temp Pulse Resp BP Pulse Ox 36.5 C 85 17 105/55 L 96 08/27/22 08:34 08/27/22 08:34 08/27/22 08:34 08/27/22 08:34 08/27/22 08:34 Pain Score Most Recent Pain Score: Most Recent Pain Score Pain Level 0 08/27/22 08:34 Assessment Mental Status: Awake (Alert & Oriented to Patient Baseline) Airway and Respiratory Function: Patent airway with normal (patient baseline) respiratory exam Cardiovascular Function: Hemodynamically Stable Hydration Status: Adequately Hydrated Nausea & Vomiting: No Nausea or Vomiting Pain: Pt. Denies Any Pain Peripheral Nerve Block: Patient did not receive a nerve block
== END 2022-08-27 09:11 | disposition home or self-care (01) ==
LOC: SUR 06:57
PROVIDERS: PCP Family Medicine; Visit Provider Surgery
PROC: 0DJ68ZZ Inspection of Stomach, Via Natural or Artificial Opening Endoscopic (ICD-10-PCS; CPT 43235; principal; 2022-08-27 08:15)
DX: R11.11 Vomiting without nausea (principal); K29.70 Gastritis, unspecified, without bleeding; K31.89 Other diseases of stomach and duodenum
CPT/HCPCS: 43239; 81025; 88305

== ENCOUNTER 2022-12-23 10:16 | Outpatient (CLI) | payer MEDICAID, SELFPAY ==
--- NOTE | 2022-12-23 06:00 | DI.RAD_ITS ---
Exam(s) XR PAIN CLINIC SACRIOILIAC 2V EXAM: XR PAIN CLINIC SACRIOILIAC 2V CLINICAL HISTORY: Dx: Sacroiliac Joint Dysfunction. TECHNIQUE: Fluoroscopy was provided for the referring physician for guidance with performing pain cl inic injection procedure. COMPARISON: No exams were available for comparison FINDINGS: Please see procedure note for details. Fluoro time: 34.8 seconds RADIATION DOSE DELIVERED: Ka,r=5.03 mGy
[2022-12-23 10:24] VITALS: BP 112/72; PULSE 83; RESP 20; TEMP 36.8; O2SAT 98
--- NOTE | 2022-12-23 10:50 | PDOC.PAIN ---
Date of service: 12/23/22 Time of Service: 10:53 Pain Managment Procedure Note Procedure Note Procedure Note: INTRA-ARTICULAR SI JOINT INJECTION Mariya Navas has been referred to the [facility] Management [facility] for intra-articular SI joint injection. COMMENTS: She has had this on 07/01/22 and had >3 months of >50% relief. This has also allowed her to keep working as an [employer] PAYMENTS RECEIVED. Dx: Sacroiliac joint dysfunction Pre-procedure pain VAS was 7/10 Patient was interviewed and the medical record reviewed. There were no medical, pharmacologic, radiographic or other structural contraindications to attempting fluoroscopically guided intra-articular SI joint injection. Risks and expected side effects as well as potential benefit of the procedure were reviewed and voiced concerns addressed. The printed consent form was signed and witnessed. Standard time-out procedure was performed. Patient was placed in the prone position on the fluoroscopy table and automated blood pressure cuff and pulse oximeter applied. The skin entry point for approaching the bilateral SI joints was identified under the most advantageous fluoroscopic view and marked. Following thorough Chlorhexadine preparation of the skin and draping and 1% lidocaine infiltration of the skin entry point and subcutaneous tissues, a 22 gauge spinal needle was placed under fluoroscopic guidance into the bilateral SI joints was identified under the most advantageous fluoroscopic view and marked. Intra-articular placement was confirmed by a clear arthrogram resulting from the injection of 0.25ml Omnipaque 240. Next I injected 40mg Depomedrol to each side, followed by 1 cc of 1% Lidocaine to side. The medication was injected intra-articularily with an initial reproduction of a significant component of the usual pain. The needles were removed without difficulty. Vital signs were stable throughout the procedure and were as recorded in the docflowsheet by the nursing staff. If given, dosages of intravenous drugs for anxiolysis and analgesia were documented in MAR. Follow up plans and appointments were discussed with the patient. Post procedure instruction was given as documented in nursing documentation and having met discharge criteria, and was discharged from the [facility] Management Center. COMMENTS: Post-procedure pain VAS was 0/10 Curt Nuñez DO, MPH [facility] Management [facility] CC: Donte Barboza DO
[2022-12-23 10:58] VITALS: BP 110/65; PULSE 65; RESP 16; O2SAT 99
[2022-12-23] MEDS: Omnipaque 240 MG/ML 50 ML BTL IJ (10:58)
[2022-12-23] MEDS: methylPREDNISolone ACETATE 80 MG/ML VIAL IJ (10:58)
== END 2022-12-23 10:17 | disposition home or self-care (01) ==
LOC: PC 10:16
PROVIDERS: PCP Family Medicine; Visit Provider Preventive Medicine Occupational Medicine
DX: M46.1 Sacroiliitis, not elsewhere classified (principal)
CPT/HCPCS: 27096; 72200; J1040; Q9967

== ENCOUNTER 2023-01-29 00:17 | Outpatient (CLI) | payer MEDICAID, SELFPAY ==
--- NOTE | 2023-01-29 11:16 | DI.MAMMO_ITS ---
Exam(s) US BREAST RT LIMITED MG MAMMO DIAGNOSTIC BI EXAM: MG MAMMO DIAGNOSTIC BI CLINICAL HISTORY: right breast painful lump,n63.10. TECHNIQUE: Craniocaudal and mediolateral oblique Full Field Digital Mammography views with Computer Aided Diagnosis followed by Tomosynthesis and right breast ultrasound. COMPARISON: US US BREAST RT LIMITED from 01/29/2023 FINDINGS: Mammography/Tomosynthesis: Masses/Architectural Distortion: None seen. Microcalcifictions: No suspicious pleomorphic-type are seen. Skin Thickening/Nipple Retraction: None. Right breast US: Echotexture: Normal appearance of the glandular tissue. Shadowing: No suspicious foci. Cyst: None. Solid lesions: None seen. Ductal dilation: None. IMPRESSION: 1. No evidence of malignancy is noted. 2. Unless there is more urgent need, follow-up screening mammography is recommended, as per [employer] guidelines. 3. The findings were discussed with the patient on the date of the examination. BI-RADS Category 1 - Negative Breast Density - Category B - Scattered areas of fibroglandular density A negative radiographic report should not delay biopsy if a dominant or clinically suspicious mass is present. Up to ten percent of cancers are not identified on mammography. A negative report may reinforce clinical impression. Adenosis and dense breasts may obscure an underlying neoplasm. False positive reports average 6 to 10%. Patient will receive a letter notifying them of these results.
== END 2023-01-29 00:37 ==
LOC: DI 00:17
PROVIDERS: PCP Family Medicine; Visit Provider Obstetrics & Gynecology
DX: N63.10 Unspecified lump in the right breast, unspecified quadrant (principal); N64.4 Mastodynia; R92.8 Other abnormal and inconclusive findings on diagnostic imaging of breast
CPT/HCPCS: 76642; 77062; 77066; G0279

== ENCOUNTER 2023-03-31 13:19 | Outpatient (CLI) | payer MEDICAID, SELFPAY ==
[2023-03-31 13:22] LABS: Abs Immature Grans 0.01 10^3/uL (0.0-0.06); Absolute Basophil Count 0.05 10^3/uL (0.0-0.2); Absolute Eosinophil Count 0.16 10^3/uL (0.0-0.7); Absolute Lymphocyte Count 3.05 10^3/uL (1.2-3.4); Absolute Monocyte Count 0.46 10^3/uL (0.1-0.8); Absolute Neutrophil Count 2.88 10^3/uL (1.2-6.7); Basophils % 0.8; Eosinophils % 2.4; HCT 39.6 % (36.0-46.0); HGB 13.1 g/dL (11.2-15.7); Immature Grans % 0.2; Lymphocytes % 46.1; MCHC 33.1 % (32.0-36.0); MCV 91 fL (80-95); MPV 9.8 fL (8.0-11.0); Neutrophils % 43.5; Platelet Count 263 10^3/uL (130-400); RBC 4.36 10^6/uL (3.93-5.22); RDW 13.2 % (11.7-14.6); RDW-SD 43.8 fL; WBC 6.61 10^3/uL (4.4-10.8)
== END 2023-03-31 13:20 | disposition home or self-care (01) ==
LOC: LBO 13:21
PROVIDERS: PCP Family Medicine; Visit Provider Family Medicine
DX: R59.1 Generalized enlarged lymph nodes (principal)
CPT/HCPCS: 36415; 85025

== ENCOUNTER 2023-04-02 00:38 | Outpatient (CLI) | payer MEDICAID, SELFPAY ==
--- NOTE | 2023-04-02 08:15 | DI.US_ITS ---
Exam(s) US AXILLA RT EXAM: US AXILLA RT CLINICAL HISTORY: Palpable persistent lymphadenopathy, R59.[address] TECHNIQUE: Ultrasound right axilla performed using standard protocol. COMPARISON: US US BREAST RT LIMITED from 01/29/2023 FINDINGS: Dedicated ultrasound exam of the right axilla was performed, as per request. We scanned the left axilla for comparison purposes. There is no mass nor fluid collection in the right axilla and no evidence of significant adenopathy. There is a single benign-appearing right axillary lymph node none which measures approximately 1.2 x 0.5 cm and exhibits normal fatty hilum. The ipsilateral right axillary vein is patent. Scanning of the opposite-left axilla reveals 3 small benign-appearing lymph nodes similar in appearan ce to the solitary lymph node in the right axilla. IMPRESSION: No sonographically suspicious finding in the right axilla. DATA REPOSITORY:
== END 2023-04-02 00:58 ==
LOC: DI 00:38
PROVIDERS: PCP Family Medicine; Visit Provider Family Medicine
DX: R59.1 Generalized enlarged lymph nodes (principal)
CPT/HCPCS: 76642

== ENCOUNTER 2023-05-26 12:30 | Outpatient (CLI) | payer MEDICAID, SELFPAY ==
--- NOTE | 2023-05-26 07:15 | DI.RAD_ITS ---
Exam(s) XR PAIN CLINIC SACRIOILIAC 2V EXAM: XR PAIN CLINIC SACRIOILIAC 2V CLINICAL HISTORY: Sacroiliac Joint Dysfunction TECHNIQUE: 2D and realtime digital imaging was performed. CONTRAST MATERIAL: Refer to procedure report. COMPARISON: No exams were available for comparison FINDINGS: Fluoroscopy was provided for Dr. Nuñez during the performance of a bilateral sacroiliac joint injecti ons. Please refer to the procedure report for complete details. Ka,r=6.11 mGy IMPRESSION:
[2023-05-26 12:38] VITALS: BP 100/64; PULSE 78; RESP 20; TEMP 36.6; O2SAT 99
[2023-05-26 13:14] VITALS: BP 113/64; PULSE 71; RESP 13; O2SAT 99
[2023-05-26] MEDS: Omnipaque 240 MG/ML 50 ML BTL IJ (13:16)
--- NOTE | 2023-05-26 13:16 | PDOC.PAIN ---
Date of service: 05/26/23 Time of Service: 13:16 Pain Managment Procedure Note Procedure Note Procedure Note: PROCEDURE NOTE BILATERAL INTRA-ARTICULAR SACROILIAC JOINT INJECTION Date of Service: May 26, 2023 Patient: Mariya Navas Provider: Curt Nuñez DO, MPH COMMENTS: I previously evaluated the patient in the office and their symptoms in relation to the sacroiliac joint pain have remained the same. She was also scheduled for Occipital Nerve blocks on the right side. She wants to postpone this procedure for now. Pre-operative diagnosis: Sacroiliac joint dysfunction Post-operative diagnosis: Same Pre-procedure pain: VAS= 7/10 Mariya Navas has been referred to our [facility] for a Bilateral intra-articular Sacroiliac joint injection. Mariya was interviewed and the medical record reviewed. There were no medical, pharmacologic, radiographic or other structural contraindications to attempting a fluoroscopically-guided, contrast-enhanced, intra-articular Sacroiliac joint injection. The risks, benefits, and potential side effects of this procedure were reviewed with the patient. Questions and concerns were addressed. After it was clear that Mariya was fully informed about the procedure, the printed consent form was signed by the patient and myself. Mariya was placed in the prone position on the fluoroscopy table and an automated blood pressure cuff, 3 lead EKG, and pulse oximeter were applied. The skin entry point for approaching the Left sacroiliac joint was identified under the most advantageous fluoroscopic view and marked. Following thorough Chlorhexadine preparation of the skin and draping with sterile surgical drapes, 2 mls of 1% lidocaine was infiltrated into the skin at the entry point and the surrounding subcutaneous tissues. Next, a 3.5 22G spinal needle was placed under fluoroscopic guidance into the Left sacroiliac joint. Intra-articular placement was confirmed by a clear arthrogram resulting from the injection of 0.25ml of Omnipaque-240. Next, 1 ml of Depo- Medrol 40 mg/ml was injected intra-articularly with an initial reproduction of a significant component of the usual pain. This was followed with 1 ml of 1% Lidocaine. The needle was then removed without difficulty. (49 ml of Omnipaque-240 was wasted). The exact procedure was completed on the opposite sacroiliac joint. Mariya's vital signs were stable throughout the procedure and were as recorded in nursing records. Follow up plans and appointments were discussed with Mariya. Post procedure instructions were given as documented in nursing records. Having met discharge criteria, Mariya was discharged from the [facility]. COMMENTS: Post-procedure pain: VAS= 0/10. If the patient receives at least 50% improvement in pain and/or function for at least 3 months, this procedure can be repeated if needed. I personally performed this entire procedure. CURT NUÑEZ DO, MPH ABPMR-subspecialty board certification in Pain Medicine [facility] [facility]
[2023-05-26] MEDS: Lidocaine 1% Pres-Free 5 ML VIAL (13:17)
[2023-05-26] MEDS: methylPREDNISolone ACETATE 80 MG/ML VIAL IJ (13:18)
== END 2023-05-26 12:31 | disposition home or self-care (01) ==
PROVIDERS: PCP Family Medicine; Visit Provider Preventive Medicine Occupational Medicine
DX: M46.1 Sacroiliitis, not elsewhere classified (principal)
CPT/HCPCS: 27096; 72200; J1040; Q9967

== ENCOUNTER 2023-06-09 10:31 | Outpatient (CLI) | payer MEDICAID, SELFPAY ==
[2023-06-09 10:56] VITALS: BP 133/71; PULSE 59; RESP 14; TEMP 36.3; O2SAT 96
[2023-06-09 11:11] VITALS: PULSE 70; O2SAT 100
[2023-06-09] MEDS: Bupivacaine 0.25% Pres-Free 30 ML VIAL (11:20)
--- NOTE | 2023-06-09 13:36 | PDOC.PAIN_ITS ---
Date of service: 06/09/23 Time of Service: 12:00 Pain Managment Procedure Note Procedure Note Procedure Note: PROCEDURE NOTE RIGHT OCCIPITAL NERVE BLOCK Date of Service: June 09, 2023 Patient:Mariya Mendoza? Provider:? Curt Nuñez DO, MPH Mariya Navas has been referred to the [facility] for a right-sided Occipital Nerve Block (Greater and Lesser) Pre-operative diagnosis: Occipital Neuralgia Post-operative diagnosis: Same Pre-procedure pain: VAS= 6/10 COMMENTS: I previously evaluated her in the clinic Mariya Navas was greeted by the nurse who verified patients name and . Mariya was interviewed and the medical record reviewed. There were no medical, pharmacologic, radiographic, or other structural contraindications to attempting RIGHT greater and lesser occipital nerve blocks. Risks and expected side effects as well as potential benefit of the procedure were reviewed with Mariya, and the patient's voiced concerns were addressed.?The printed consent form was signed.? Standard time-out procedure was performed. Mariya was placed in the prone position on the examination table. The occipital protuberance was palpated. The skin just to the right side of the occipital protuberance and out 2 inches lateral to the protuberance was thoroughly prepared with an alcohol preparation. Next, I entered the skin to each side of the protuberance with a 1.5 25G spinal needle. Aspiration revealed no blood or other fluid. Next, I injected 1 ml of preservative-free 1% Lidocaine and 2 cc of 0.25% Bupivacaine and removed the needle. I then placed the needle 2 inches lateral to the occipital protuberance and entered the skin and advanced the needle to the skull. Next, I injected 2 ml of preservative- free 1% Lidocaine and 3 cc of 0.25% Bupivacaine and removed the needles. There was no unusual discomfort expressed by Mariya. The needles were withdrawn without difficulty. Mariya was observed and was without hemodynamic, neurologic, or allergic reactions.? Follow up plans and appointments were discussed with Mariya.? Post procedure instruction was given as documented in nursing documentation and having met discharge criteria, Mari[facility]. ? COMMENTS: No apparent complications. Post-procedure pain: VAS= 0/10. Mariya to contact [facility] as needed. I personally completed the entire procedure. CURT NUÑEZ DO, MPH ABPM[employer]R - Subspecialty board certification in Pain Medicine [facility]
== END 2023-06-09 10:32 | disposition home or self-care (01) ==
LOC: PC 10:31
PROVIDERS: PCP Family Medicine; Visit Provider Preventive Medicine Occupational Medicine
DX: M54.81 Occipital neuralgia (principal)
CPT/HCPCS: 64405; 64450

== ENCOUNTER 2023-09-22 12:47 | Outpatient (CLI) | payer MEDICAID, SELFPAY ==
[2023-09-22 12:58] VITALS: BP 95/62; PULSE 85; RESP 20; TEMP 36.9; O2SAT 98
--- NOTE | 2023-09-22 13:22 | PDOC.PAIN_ITS ---
Date of service: 09/22/23 Time of Service: 13:22 Pain Managment Procedure Note Procedure Note Procedure Note: PROCEDURE NOTE BILATERAL INTRA-ARTICULAR SACROILIAC JOINT INJECTION Date of Service: September 22, 2023 Patient: Mariya Navas Provider: Curt Nuñez DO, MPH COMMENTS: I previously evaluated the patient in the office and their symptoms in relation to the sacroiliac joint pain have remained the same. She had this procedure on 05/26/23 and had >3 months of >50% pain relief. Pre-operative diagnosis: Sacroiliac joint dysfunction Post-operative diagnosis: Same Pre-procedure pain: VAS= 8/10 Mariya Navas has been referred to [facility] for a Bilateral intra-articular Sacroiliac joint injection. Mariya was interviewed and the medical record reviewed. There were no medical, pharmacologic, radiographic or other structural contraindications to attempting a fluoroscopically-guided, contrast-enhanced, intra-articular Sacroiliac joint injection. The risks, benefits, and potential side effects of this procedure were reviewed with the patient. Questions and concerns were addressed. After it was clear that Mariya was fully informed about the procedure, the printed consent form was signed by the patient and myself. Mariya was placed in the prone position on the fluoroscopy table and an automated blood pressure cuff, 3 lead EKG, and pulse oximeter were applied. The skin entry point for approaching the Left sacroiliac joint was identified under the most advantageous fluoroscopic view and marked. Following thorough Chlorhexa dine preparation of the skin and draping with sterile surgical drapes, 2 mls of 1% lidocaine was infiltrated into the skin at the entry point and the surrounding subcutaneous tissues. Next, a 3.5 22G spinal needle was placed under fluoroscopic guidance into the Left sacroiliac joint. Intra-articular placement was confirmed by a clear arthrogram resulting from the injection of 0.25ml of Omnipaque-240. Next, 1 ml of Depo- Medrol 40 mg/ml was injected intra- articularly with an initial reproduction of a significant component of the usual pain. This was followed with 1 ml of 1% Lidocaine. The needle was then removed without difficulty. (49 ml of Omnipaque-240 was wasted). The exact procedure was completed on the opposite sacroiliac joint. Mariya's vital signs were stable throughout the procedure and were as recorded in nursing records. Follow up plans and appointments were discussed with Mariya. Post procedure instructions were given as documented in nursing records. Having met discharge criteria, Mariya was [facility] from the [facility]. COMMENTS: Post-procedure pain: VAS= 0/10. If the patient receives at least 50% improvement in pain and/or function for at least 3 months, this procedure can be repeated if needed. I personally performed this entire procedure. CURT NUÑEZ DO, MPH ABPMR-subspecialty board certification in Pain Medicine [facility] [facility]
[2023-09-22 13:26] VITALS: BP 110/63; PULSE 82; RESP 19; O2SAT 97
--- NOTE | 2023-09-22 13:26 | DI.RAD_ITS ---
Exam(s) XR PAIN CLINIC SACRIOILIAC 2V EXAM: XR PAIN CLINIC SACRIOILIAC 2V CLINICAL HISTORY: Dx: Sacroiliac Joint Dysfunction. TECHNIQUE: Fluoroscopy was provided for the referring physician for guidance with performing pain cl inic injection procedure. COMPARISON: No exams were available for comparison FINDINGS: Please see procedure note for details. Fluoro time: 25.5 seconds RADIATION DOSE DELIVERED: Ka,r=4.1 mGy
[2023-09-22] MEDS: methylPREDNISolone ACETATE 40 MG/ML VIAL IJ (13:27)
[2023-09-22] MEDS: Nerve Block Tray 1 EACH MC (13:27)
[2023-09-22] MEDS: Omnipaque 240 MG/ML 50 ML BTL IJ (13:27)
== END 2023-09-22 12:48 | disposition home or self-care (01) ==
LOC: PC 12:48
PROVIDERS: PCP Family Medicine; Visit Provider Preventive Medicine Occupational Medicine
DX: M46.1 Sacroiliitis, not elsewhere classified (principal)
CPT/HCPCS: 00123; 27096; 72200; J1030; Q9967

== ENCOUNTER 2024-04-26 15:33 | Outpatient (CLI) | payer MEDICAID, SELFPAY ==
[2024-04-26 15:40] VITALS: BP 103/64; PULSE 62; RESP 20; TEMP 36.7; O2SAT 98
[2024-04-26 16:01] VITALS: O2SAT 100
[2024-04-26 16:10] VITALS: O2SAT 100
[2024-04-26] MEDS: Dexamethasone Sod. Phos./Pres-Free 10 MG/ML VIAL IJ (16:15)
[2024-04-26] MEDS: Bupivacaine 0.25% Pres-Free 30 ML VIAL IJ (16:15)
[2024-04-26] MEDS: Nerve Block Tray 1 EACH MC (16:15)
--- NOTE | 2024-04-28 10:31 | PDOC.PAIN_ITS ---
Date of service: 04/26/24 Time of Service: 16:20 Pain Managment Procedure Note Procedure Note Procedure Note: PROCEDURE NOTE OCCIPITAL NERVE BLOCK Date of Service: April 26, 2024 Patient:Mariya Mendoza? Provider:? Curt Nuñez DO, MPH Mariya Navas has been referred to the [facility] for Occipital Nerve Block Pre-operative diagnosis: Occipital Neuralgia Post-operative diagnosis: Same Pre-procedure pain: VAS= 5/10 COMMENTS: We were going to do this procedure on the right only. Her symptoms have progressed to the left side. She does have clinical signs and symptoms of occipital neuralgia at both the greater and lesser occipital nerves on the left as well as the right. I did recommend that we proceed with a bilateral procedure today. The patient does agree. Her last right-sided ocular nerve blocks were on 06/09/2023 and these made a marked difference. She had over 70% pain relief for over 6 months. Her headaches were much reduced. Mariya Navas was greeted by the nurse who verified patients name and . Mariya was interviewed and the medical record reviewed. There were no medical, pharmacologic, radiographic, or other structural contraindications to attempting BILATERAL greater and lesser occipital nerve blocks. Risks and expected side effects as well as potential benefit of the procedure were reviewed with Mariya, and the patient's voiced concerns were addressed.?The printed consent form was signed.? Standard time-out procedure was performed. Mariya was placed in the prone position on the examination table. The oc cipital protuberance was palpated. The skin just to each side of the occipital protuberance and out 2 inches lateral to the protuberance was thoroughly prepared with an alcohol preparation. Next, I entered the skin to each side of the protuberance with a 1.5 25G spinal needle. Aspiration revealed no blood or other fluid. Next, I injected 1 ml of preservative-free 1% Lidocaine and removed the needle. I then placed the needle 2 inches lateral to each side to the occipital protuberance and entered the skin and advanced the needle to the skull. Next, I injected 1 ml of preservative-free 1% Lidocaine to each side and removed the needles. There was no unusual discomfort expressed by Mariya. The needles were withdrawn without difficulty. Mariya was observed and was without hemodynamic, neurologic, or allergic reactions.? Follow up plans and appointments were discussed with Mariya.? Post procedure instruction was given as documented in nursing documentation and having met discharge criteria, Mariya was [facility] from the [facility]. ? COMMENTS: No apparent complications. Post-procedure pain: VAS= 0/10. Mariya to contact [facility] as needed. I personally completed the entire procedure. CURT NUÑEZ DO, MPH ABPM&R - Subspecialty board certification in Pain Medicine [facility] [facility]
== END 2024-04-26 15:34 | disposition home or self-care (01) ==
LOC: PC 15:33
PROVIDERS: PCP Family Medicine; Visit Provider Preventive Medicine Occupational Medicine
DX: M54.81 Occipital neuralgia (principal)
CPT/HCPCS: 64405; 64450; J0665; J1100

== ENCOUNTER 2024-05-12 09:35 | Outpatient (CLI) | payer MEDICAID, SELFPAY ==
--- NOTE | 2024-05-12 06:00 | DI.RAD_ITS ---
Exam(s) XR PAIN CLINIC SACRIOILIAC 2V EXAM: XR PAIN CLINIC SACRIOILIAC 2V CLINICAL HISTORY: DX: Sacroiliac Joint Dysfunction. TECHNIQUE: Fluoroscopy was provided for the referring physician for guidance with performing pain cl inic injection procedure. COMPARISON: No exams were available for comparison FINDINGS: Please see procedure note for details. Fluoro time: 31.1 seconds RADIATION DOSE DELIVERED: Kar=4.87 mGy
[2024-05-12 10:13] VITALS: O2SAT 99
[2024-05-12 10:15] VITALS: BP 137/74; PULSE 73; PULSE 74; RESP 12; O2SAT 99
[2024-05-12 10:16] VITALS: BP 134/96; PULSE 69; PULSE 71; RESP 16; O2SAT 100
[2024-05-12 10:17] VITALS: BP 115/89; PULSE 74; RESP 18; TEMP 37; O2SAT 98
[2024-05-12 10:20] VITALS: PULSE 71; RESP 10; O2SAT 100
--- NOTE | 2024-05-12 10:29 | PDOC.PAIN ---
Date of service: 05/12/24 Time of Service: 10:29 Pain Managment Procedure Note Procedure Note Procedure Note: PROCEDURE NOTE BILATERAL INTRA-ARTICULAR SACROILIAC JOINT INJECTION Date of Service: May 12, 2024 Patient: Mariya Navas Provider: Curt Nuñez DO, MPH COMMENTS: I previously evaluated the patient in the office and their symptoms in relation to the sacroiliac joint pain have remained the same. Pre-operative diagnosis: Sacroiliac joint dysfunction Post-operative diagnosis: Same Pre-procedure pain: VAS= 7/10 Mariya Navas has been referred to our [facility] for a Bilateral intra-articular Sacroiliac joint injection. Mariya was interviewed and the medical record reviewed. There were no medical, pharmacologic, radiographic or other structural contraindications to attempting a fluoroscopically-guided, contrast-enhanced, intra-articular Sacroiliac joint injection. The risks, benefits, and potential side effects of this procedure were reviewed with the patient. Questions and concerns were addressed. After it was clear that Mariya was fully informed about the procedure, the printed consent form was signed by the patient and myself. Mariya was placed in the prone position on the fluoroscopy table and an automated blood pressure cuff, 3 lead EKG, and pulse oximeter were applied. The skin entry point for approaching the Left sacroiliac joint was identified under the most advantageous fluoroscopic view and marked. Following thorough Chlorhexadine preparation of the skin and draping with sterile surgical drapes, 2 mls of 1% lidocaine was infiltrated into the skin at the entry point and the surrounding subcutaneous tissues. Next, a 3.5 22G spinal needle was placed under fluoroscopic guidance into the Left sacroiliac joint. Intra-articular placement was confirmed by a clear arthrogram resulting from the injection of 0.25ml of Omnipaque-240. Next, 1 ml of Depo- Medrol 40 mg/ml was injected intra-articularly with an initial reproduction of a significant component of the usual pain. This was followed with 1 ml of 1% Lidocaine. The needle was then removed without difficulty. (49 ml of Omnipaque-240 was wasted). The exact procedure was completed on the opposite sacroiliac joint. Denises vital signs were stable throughout the procedure and were as recorded in nursing records. Follow up plans and appointments were discussed with Mariya. Post procedure instructions were given as documented in nursing records. Having met discharge criteria, Mariya was [facility] from the [facility]. COMMENTS: Post-procedure pain: VAS= 0/10. If the patient receives at least 50% improvement in pain and/or function for at least 3 months, this procedure can be repeated if needed. I personally performed this entire procedure. CURT NUÑEZ DO, MPH ABPMR-subspecialty board certification in Pain Medicine [facility]
[2024-05-12] MEDS: methylPREDNISolone ACETATE 80 MG/ML VIAL IJ (10:32)
[2024-05-12] MEDS: Omnipaque 240 MG/ML 50 ML BTL IJ (10:32)
[2024-05-12] MEDS: Nerve Block Tray 1 EACH MC (10:33)
== END 2024-05-12 09:36 | disposition home or self-care (01) ==
LOC: PC 09:36
PROVIDERS: PCP Family Medicine; Visit Provider Preventive Medicine Occupational Medicine
DX: M53.3 Sacrococcygeal disorders, not elsewhere classified (principal)
CPT/HCPCS: 27096; 72200; J1010; Q9967

== ENCOUNTER 2024-10-09 12:16 | Emergency (ER) | payer MEDICAID, SELFPAY ==
[2024-10-09 12:25] VITALS: BP 114/76; PULSE 96; RESP 16; TEMP 35.5; O2SAT 96
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
--- NOTE | 2024-10-09 13:25 | DI.RAD_ITS ---
Exam(s) XR SHOULDER RT COMPLETE 2+V EXAM: XR SHOULDER RT COMPLETE 2+V CLINICAL HISTORY: Right shoulder pain. TECHNIQUE: 2D digital imaging was performed. COMPARISON: No exams were available for comparison FINDINGS: Five views. No evidence of fracture nor dislocation nor abnormal soft tissue calcifications. Subacromial space e xhibits normal height. There are no obvious degenerative changes in the glenohumeral and AC joints a nd the ipsilateral clavicle and coracoid process appear unremarkable. Bone density is normal. No os seous lesions. IMPRESSION: No significant radiographic findings in the right shoulder. DATA REPOSITORY: RADIATION DOSE DELIVERED:
[2024-10-09 13:40] VITALS: BP 128/82; PULSE 77; RESP 18; O2SAT 97
[2024-10-09] MEDS: Ibuprofen 400 MG TAB PO (14:18)
[2024-10-09] MEDS: Acetaminophen 325 MG TAB 650 MG PO (14:19)
[2024-10-09] MEDS: Lidocaine 5% Patch 1 PATCH TP (14:19)
[2024-10-09 14:31] VITALS: BP 107/70; PULSE 66; RESP 18; O2SAT 98
== END 2024-10-09 14:33 | disposition home or self-care (01) ==
PROVIDERS: Emergency Provider Emergency Medicine; PCP Family Medicine
DX: M43.6 Torticollis (principal); Z59.86 Financial insecurity
CPT/HCPCS: 99283; 73030

== ENCOUNTER 2024-11-22 09:28 | Outpatient (CLI) | payer MEDICAID, SELFPAY ==
[2024-11-22 09:31] VITALS: BP 119/70; PULSE 80; RESP 20; TEMP 36.7; O2SAT 100
[2024-11-22 10:18] VITALS: PULSE 67; PULSE 68; O2SAT 98
[2024-11-22 10:20] VITALS: BP 123/71; PULSE 61; PULSE 63; RESP 17; O2SAT 97
[2024-11-22 10:21] VITALS: PULSE 65; PULSE 67; RESP 15; O2SAT 98
[2024-11-22 10:30] VITALS: PULSE 75; PULSE 80; RESP 21; O2SAT 98
[2024-11-22 10:31] VITALS: BP 147/90; PULSE 60
--- NOTE | 2024-11-22 10:31 | DI.RAD_ITS ---
Exam(s) XR PAIN CLINIC SACRIOILIAC 2V EXAM: XR PAIN CLINIC SACRIOILIAC 2V CLINICAL HISTORY: DX: Sacroiliac Dysfunction. TECHNIQUE: Fluoroscopy was provided for the referring physician for guidance with performing pain cl inic injection procedure. COMPARISON: No exams were available for comparison FINDINGS: Please see procedure note for details. Fluoro time: 38.9 seconds RADIATION DOSE DELIVERED: Ka,r=6.2 mGy
[2024-11-22] MEDS: methylPREDNISolone ACETATE 80 MG/ML VIAL IJ (10:35)
[2024-11-22] MEDS: Nerve Block Tray 1 EACH MC (10:35)
[2024-11-22] MEDS: Omnipaque 240 MG/ML 50 ML BTL IJ (10:36)
--- NOTE | 2024-11-22 10:43 | PDOC.PAIN ---
Date of service: 11/22/24 Time of Service: 10:43 Pain Managment Procedure Note Procedure Note Procedure Note: PROCEDURE NOTE BILATERAL INTRA-ARTICULAR SACROILIAC JOINT INJECTION Date of Service: November 22, 2024 Patient: Mariya Navas Provider: Curt Nuñez DO, MPH COMMENTS: I previously evaluated the patient in the office and their symptoms in relation to the sacroiliac joint pain have remained the same. She had this procedure on 05/12/25 and had >4 months of >50% pain relief. This procedure has allowed her to keep working and being able to be more active with her 7 year old son. Pre-operative diagnosis: Sacroiliac joint dysfunction ICD-10 M53.3 Post-operative diagnosis: Same Pre-procedure pain: VAS= 8/10 Mariya Navas has been referred to our [facility] for a Bilateral intra-articular Sacroiliac joint injection. Mariya was interviewed and the medical record reviewed. There were no medical, pharmacologic, radiographic or other structural contraindications to attempting a fluoroscopically-guided, contrast-enhanced, intra-articular Sacroiliac joint injection. The risks, benefits, and potential side effects of this procedure were reviewed with the patient. Questions and concerns were addressed. After it was clear that Mariya was fully informed about the procedure, the printed consent form was signed by the patient and myself. Mariya was placed in the prone position on the fluoroscopy table and an automated blood pressure cuff, 3 lead EKG, and pulse oximeter were applied. The skin entry point for approaching the Left sacroiliac joint was identified under the most advantageous fluoroscopic view and marked. Following thorough Chlorhexadine preparation of the skin and draping with sterile surgical drapes, 2 mls of 1% lidocaine was infiltrated into the skin at the entry point and the surrounding subcutaneous tissues. Next, a 3.5 22G spinal needle was placed under fluoroscopic guidance into the Left sacroiliac joint. Intra-articular placement was confirmed by a clear arthrogram resulting from the injection of 0.25ml of Omnipaque-240. Next, 1 ml of Depo- Medrol 40 mg/ml was injected intra-articularly with an initial reproduction of a significant component of the usual pain. This was followed with 1 ml of 1% Lidocaine. The needle was then removed without difficulty. (49 ml of Omnipaque-240 was wasted). The exact procedure was completed on the opposite sacroiliac joint. Mariya's vital signs were stable throughout the procedure and were as recorded in nursing records. Follow up plans and appointments were discussed with Mariya. Post procedure instructions were given as documented in nursing records. Having met discharge criteria, Mariya was [facility] from the [facility]. COMMENTS: Post-procedure pain: VAS= 1/10. If the patient receives at least 50% improvement in pain and/or function for at least 3 months, this procedure can be repeated if needed. I personally performed this entire procedure. CURT NUÑEZ DO, MPH ABPMR-subspecialty board certification in Pain Medicine [facility] Coding Conscious Sedation used for procedure: No CPT Codes: SI Joint Inj; incl Fluoro * BILATERAL* - [id number] ([id number]~G5) Additional Codes: Date of Service (43638) Date of service: 11/22/24
== END 2024-11-22 09:29 | disposition home or self-care (01) ==
LOC: PC 09:29
PROVIDERS: PCP Family Medicine; Visit Provider Preventive Medicine Occupational Medicine
DX: M53.3 Sacrococcygeal disorders, not elsewhere classified (principal)
CPT/HCPCS: 27096; 72200; J1010; Q9967

== ENCOUNTER 2024-12-07 09:30 | Outpatient (CLI) | payer MEDICAID, SELFPAY ==
[2024-12-07 09:39] VITALS: BP 111/55; PULSE 68; RESP 18; TEMP 36.6; O2SAT 100
[2024-12-07 10:01] VITALS: PULSE 72; O2SAT 98
[2024-12-07] MEDS: Nerve Block Tray 1 EACH MC (10:12)
[2024-12-07] MEDS: Dexamethasone Sod. Phos./Pres-Free 10 MG/ML VIAL IJ (10:12)
[2024-12-07] MEDS: Bupivacaine 0.25% Pres-Free 30 ML VIAL IJ (10:12)
--- NOTE | 2024-12-07 10:13 | PDOC.PAIN ---
Date of service: 12/07/24 Time of Service: 10:13 Pain Managment Procedure Note Procedure Note Procedure Note: PROCEDURE NOTE OCCIPITAL NERVE BLOCK Date of Service: December 07, 2024 Patient:Mariya Mendoza? Provider:? Javier Nuñez DO, MPH Mariya Navas has been referred to the [facility] for Occipital Nerve Block Pre-operative diagnosis: Occipital Neuralgia ICD-10 M54.81 Post-operative diagnosis: Same Pre-procedure pain: VAS= 10/10 COMMENTS: She did very well with the last ONB - achieving >50% pain improvement for >3 months. Mariya Navas was greeted by the nurse who verified patients name and . Mariya was interviewed and the medical record reviewed. There were no medical, pharmacologic, radiographic, or other structural contraindications to attempting RIGHT greater and lesser occipital nerve blocks. Risks and expected side effects as well as potential benefit of the procedure were reviewed with Mariya, and the patient's voiced concerns were addressed.?The printed consent form was signed.? Standard time-out procedure was performed. Mariya was placed in the prone position on the examination table. The occipital protuberance was palpated. The skin just to the right of the occipital protuberance and out 2 inches lateral to the protuberance was thoroughly prepared with an alcohol preparation. Next, I entered the skin to each side of the protuberance with a 1.5 25G spinal needle. Aspiration revealed no blood or other fluid. Next, I injected 1 ml of preservative-free 1% Lidocaine and removed the needle. I then placed the needle 2 inches lateral to the occipital protuberance and entered the skin and advanced the needle to the skull. Next, I injected 1 ml of preservative-free 1% Lidocaine, then 0.5 cc of Dexamethasone (10 mg/cc) and then 3 cc of 0.5% Bupivacaine to each side and removed the needles. There was no unusual discomfort expressed by Mariya. The needles were withdrawn without difficulty. Mariya was observed and was without hemodynamic, neurologic, or allergic reactions.? Follow up plans and appointments were discussed with Mariya.? Post procedure instruction was given as documented in nursing documentation and having met discharge criteria, Mariya was discharged from the [facility]. ? COMMENTS: No apparent complications. Post-procedure pain: VAS= 0/10. Mariya to contact [facility] as needed. I personally completed the entire procedure. JAVIER NUÑEZ DO, MPH ABPM&R - Subspecialty board certification in Pain Medicine [facility] Coding Conscious Sedation used for procedure: No CPT Codes: OTF (Greater Occipital Nerve); Bilateral, Right, or Left - 65725 ([id number] ~G) Right side only EFRAIN; Other Peripheral, Superior Cluneal, Sural, Coccygeal - 85781 ([id number] ~G) Right occipital nerve block Additional Codes: Date of Service (12479) Date of service: 12/07/24
== END 2024-12-07 09:31 | disposition home or self-care (01) ==
LOC: PC 09:30
PROVIDERS: PCP Family Medicine; Visit Provider Preventive Medicine Occupational Medicine
DX: M54.81 Occipital neuralgia (principal)
CPT/HCPCS: 64405; 64450; J0665; J1100

== ENCOUNTER 2025-02-07 02:52 | Outpatient (CLI) | payer MEDICAID, SELFPAY ==
--- NOTE | 2025-02-07 07:45 | DI.MRI_ITS ---
Exam(s) MR CERVICAL SPINE WO EXAM: MR CERVICAL SPINE WO CLINICAL HISTORY: Known C5-C6 herniation, worsening pain,numbness,degeneration of c 5-6 TECHNIQUE: Multiplanar multisequence MRI of the cervical spine was performed without intravenous con trast. COMPARISON: MR MR CERVICAL SPINE WO from 07/31/2022 FINDINGS: BONES: Vertebral body heights are maintained. Intervertebral disc spaces are normal. Alignment is nor mal. Bone marrow signal intensity is within normal limits. CERVICAL CORD: Craniovertebral junction is unremarkable. The cervical cord is normal size and signal intensity. SOFT TISSUES: Unremarkable. C2-3: No disc herniation or bulge is identified. No significant central spinal canal or neural forami nal stenosis. C3-4: No disc herniation or bulge is identified. No significant central spinal canal or neural forami nal stenosis C4-5: No disc herniation or bulge is identified. No significant central spinal canal or neural forami nal stenosis C5-6: There is a diffuse disc bulge with a small central disc herniation present. It is slightly big luma in size compared to the prior examination. There is now slight effacement of the anterior subara chnoid space. No significant neural foraminal stenosis is seen. C6-7: No disc herniation or bulge is identified. No significant central spinal canal or neural forami nal stenosis C7-T1: No disc herniation or bulge is identified. No significant central spinal canal or neural xavi inal stenosis IMPRESSION: 1. Small central disc herniation and diffuse disc bulge at C5-C6 which has shown slight increase in s ize compared to the prior examination. 2. There is normal signal in the spinal cord. DATA REPOSITORY:
== END 2025-02-07 03:12 ==
LOC: DI 02:52
PROVIDERS: PCP Family Medicine; Visit Provider Family Medicine
DX: M50.322 Other cervical disc degeneration at C5-C6 level (principal)
CPT/HCPCS: 72141

== ENCOUNTER 2025-05-09 09:45 | Outpatient (CLI) | payer MEDICAID, SELFPAY ==
[2025-05-09 09:58] VITALS: BP 114/62; PULSE 73; RESP 18; TEMP 37.1; O2SAT 100
[2025-05-09 10:17] VITALS: PULSE 69; O2SAT 99
[2025-05-09 10:20] VITALS: PULSE 71; O2SAT 99
[2025-05-09] MEDS: Nerve Block Tray 1 EACH MC (10:27)
[2025-05-09] MEDS: Bupivacaine 0.25% Pres-Free 30 ML VIAL IJ (10:27)
[2025-05-09] MEDS: Dexamethasone Sod. Phos./Pres-Free 10 MG/ML VIAL IJ (10:27)
--- NOTE | 2025-05-09 10:28 | PDOC.PAIN ---
Date of service: 05/09/25 Time of Service: 10:28 Pain Managment Procedure Note Procedure Note Procedure Note: PROCEDURE NOTE OCCIPITAL NERVE BLOCK Date of Service: May 09, 2025 Patient:Mariya Mendoza? Provider:? Javier Nuñez DO, MPH Mariya Navas has been [facility] for Occipital Nerve Block Pre-operative diagnosis: Occipital Neuralgia ICD-10 M54.81 Post-operative diagnosis: Same Pre-procedure pain: VAS= 4/10 COMMENTS: She has had this procedure on 12/07/24 with >4 months of >50% pain improvement. Mariya Navas was greeted by the nurse who verified patients name and . Mariya was interviewed and the medical record reviewed. There were no medical, pharmacologic, radiographic, or other structural contraindications to attempting BILATERAL greater and lesser occipital nerve blocks. Risks and expected side effects as well as potential benefit of the procedure were reviewed with Mariya, and the patient's voiced concerns were addressed.?The printed consent form was signed.? Standard time-out procedure was performed. Mariya was placed in the prone position on the examination table. The occipital protuberance was palpated. The skin just to each side of the occipital protuberance and out 2 inches lateral to the protuberance was thoroughly prepared with an alcohol preparation. Next, I entered the skin to each side of the protuberance with a 1.5 25G spinal needle. Aspiration revealed no blood or other fluid. Next, I injected 1 ml of preservative-free 1% Lidocaine, 1/4 cc of Dexamethasone (10 mg/cc) and 1 cc of 0.25% Marcaine and removed the needle. I then placed the needle 2 inches lateral to each side to the occipital protuberance and entered the skin and advanced the needle to the skull. Next, I injected 1 ml of preservative-free 1% Lidocaine, 1/4 cc of Dexamethasone (10 mg/cc) and 1 cc of 0.25% Marcaine to each side and removed the needles. There was no unusual discomfort expressed by Mariya. The needles were withdrawn without difficulty. Mariya was observed and was without hemodynamic, neurologic, or allergic reactions.? Follow up plans and appointments were discussed with Mariya.? Post procedure instruction was given as documented in nursing documentation and having met discharge criteria, Mari[facility]. ? COMMENTS: No apparent complications. Post-procedure pain: VAS= 1/10. Mariya to contact [facility] as needed. I personally completed the entire procedure. JAVIER NUÑEZ DO, MPH [employer]BPM[employer]R - Subspecialty board certification in Pain Medicine [facility] Coding Conscious Sedation used for procedure: No CPT Codes: OTF (Greater Occipital Nerve); Bilateral, Right,Left*BILAT* - [id number] ([id number]~G5) EFRAIN; Oth Peripheral, Superior Cluneal, Sural, Coccygeal*JOSE* - [id number] ([id number]~G5) Additional Codes: Date of Service (14416) Date of service: 05/09/25 Diagnoses: Occipital neuralgia
== END 2025-05-09 09:46 | disposition home or self-care (01) ==
LOC: PC 09:46
PROVIDERS: PCP Family Medicine; Visit Provider Preventive Medicine Occupational Medicine
DX: M54.81 Occipital neuralgia (principal)
CPT/HCPCS: 64405; 64450; J0665; J1100

== ENCOUNTER 2025-06-21 11:57 | Outpatient (CLI) | payer MEDICAID, SELFPAY ==
--- NOTE | 2025-06-21 06:00 | DI.RAD_ITS ---
Exam(s) XR PAIN CLINIC SACRIOILIAC 2V EXAM: XR PAIN CLINIC SACRIOILIAC 2V CLINICAL HISTORY: Dx: Sacroiliac Joint Dysfunction. TECHNIQUE: Fluoroscopy was provided for the referring physician for guidance with performing pain clinic injection procedure. COMPARISON: No exams were available for comparison FINDINGS: Please see procedure note for details. Fluoro time: 26.9 seconds RADIATION DOSE DELIVERED: Ka,r=4.41 mGy
[2025-06-21 11:59] VITALS: BP 111/72; PULSE 80; RESP 18; TEMP 36.9; O2SAT 98
[2025-06-21 12:29] VITALS: PULSE 60; PULSE 78; O2SAT 96
[2025-06-21 12:30] VITALS: PULSE 67; RESP 13; O2SAT 99
[2025-06-21 12:31] VITALS: BP 122/69; PULSE 64; PULSE 71; RESP 12; O2SAT 99
[2025-06-21 12:40] VITALS: PULSE 64; PULSE 66; RESP 16; O2SAT 99
--- NOTE | 2025-06-21 12:41 | PDOC.PAIN ---
Date of service: 06/21/25 Time of Service: 12:41 Pain Managment Procedure Note Procedure Note Procedure Note: PROCEDURE NOTE BILATERAL INTRA-ARTICULAR SACROILIAC JOINT INJECTION Date of Service: June 21, 2025 Patient: Mariya Navas Provider: Curt Nuñez DO, MPH COMMENTS: I previously evaluated the patient in the office and their symptoms in relation to the sacroiliac joint pain have remained the same. Her last bilateral SIJ injections were on 11/22/24 and she had >5 months of >50% pain relief. Pre-operative diagnosis: Sacroiliac joint dysfunction ICD-10 M53.3 Post-operative diagnosis: Same Pre-procedure pain: VAS= 7/10 Mariya Navas has been referred to our [facility] for a Bilateral intra-articular Sacroiliac joint injection. Mariya was interviewed and the medical record reviewed. There were no medical, pharmacologic, radiographic or other structural contraindications to attempting a fluoroscopically-guided, contrast-enhanced, intra-articular Sacroiliac joint injection. The risks, benefits, and potential side effects of this procedure were reviewed with the patient. Questions and concerns were addressed. After it was clear that Mariya was fully informed about the procedure, the printed consent form was signed by the patient and myself. Mariya was placed in the prone position on the fluoroscopy table and an automated blood pressure cuff, 3 lead EKG, and pulse oximeter were applied. The skin entry point for approaching the Left sacroiliac joint was identified under the most advantageous fluoroscopic view and marked. Following thorough Chlorhexadine preparation of the skin and draping with sterile surgical drapes, 2 mls of 1% lidocaine was infiltrated into the skin at the entry point and the surrounding subcutaneous tissues. Next, a 3.5 22G spinal needle was placed under fluoroscopic guidance into the Left sacroiliac joint. Intra-articular placement was confirmed by a clear arthrogram resulting from the injection of 0.25ml of Omnipaque-240. Next, 1 ml of Depo- Medrol 40 mg/ml was injected intra-articularly with an initial reproduction of a significant component of the usual pain. This was followed with 1 ml of 1% Lidocaine. The needle was then removed without difficulty. (49 ml of Omnipaque-240 was wasted). The exact procedure was completed on the opposite sacroiliac joint. Mariya's vital signs were stable throughout the procedure and were as recorded in nursing records. Follow up plans and appointments were discussed with Mariya. Post procedure instructions were given as documented in nursing records. Having met discharge criteria, Mariya was [facility] from the [facility]. COMMENTS: Post-procedure pain: VAS= 0/10. If the patient receives at least 50% improvement in pain and/or function for at least 3 months, this procedure can be repeated if needed. I personally performed this entire procedure. CURT NUÑEZ DO, MPH ABPMR-subspecialty board certification in Pain Medicine [facility] Coding Conscious Sedation used for procedure: No CPT Codes: SI Joint Inj; incl Fluoro * BILATERAL* - [id number] ([id number]~G5) Additional Codes: Date of Service () Diagnoses: sacroiliac joint dysfunction
[2025-06-21] MEDS: Omnipaque 240 MG/ML 50 ML BTL IJ (12:44)
[2025-06-21] MEDS: methylPREDNISolone ACETATE 40 MG/ML VIAL IJ (12:44)
[2025-06-21] MEDS: Nerve Block Tray 1 EACH MC (12:44)
== END 2025-06-21 11:58 | disposition home or self-care (01) ==
LOC: PC 11:57
PROVIDERS: PCP Family Medicine; Visit Provider Preventive Medicine Occupational Medicine
DX: M53.3 Sacrococcygeal disorders, not elsewhere classified (principal)
CPT/HCPCS: 27096; 72200; J1010; Q9967

== ENCOUNTER 2025-08-02 10:35 | Outpatient (REF) | payer MEDICAID, SELFPAY ==
--- NOTE | 2025-08-02 10:45 | PAPFT_PTH ---
PATIENT: Mariya Navas LOC: [facility] U#:[id number] AGE/SX: 39/F ROOM: RE08/02/[address]: Brianna Bello DO : 1985 BED: DIS: 08/02/2025 SPEC #: [id number] RECD: 08/02/25 13:13 STATUS: KIMBERLY REQ #: [id number] JAH: 08/02/25 10:[address]: Brianna Bello DEPT: [facility] Cytology RECD BY: Trixie Patrick ENTERED: 08/02/25 13:13 SP TYPE: PAPFT OTHR DR: Donte Barboza DO Tissues: 1 - CX/ENDOCX FOR PAP SMEARS Procedures: PAP THIN PREP/[facility] Screening HPV DNA PROBE Comments: [id number] (HPV 16 & 18/45)
== END 2025-08-02 10:36 | disposition home or self-care (01) ==
LOC: LBN 10:35
PROVIDERS: PCP Family Medicine; Visit Provider Obstetrics & Gynecology
DX: Z12.4 Encounter for screening for malignant neoplasm of cervix (principal)
CPT/HCPCS: 88142; 87624